=== PATIENT | female | born 1935 | race Caucasian/White ===

== ENCOUNTER 2017-04-14 08:09 | Emergency (ER) | payer MEDICARE, BC ==
[~2017-04-14] VITALS: Ht 172.7 cm; Wt 85.0 kg
[~2017-04-14 08:09] MED LIST: ACCU40TA10 PO; ATEN1TAB75 PO; ATOR20TA42 PO; CENTTAB9 PO; CLOP75 PO; DIAZ10 PO; FLUT0.05; FOSA70TA PO; FURO1TAB93 PO; OMEP20TA39 PO; POTA-243 PO; TYLE500T PO
[2017-04-14 08:13] VITALS: BP 157/86; PULSE 80; RESP 18; TEMP 98.5; O2SAT 97
[2017-04-14] MEDS ORDERED: SODIUM CHLORIDE 0.9% FLUSH 10 ML FLUSH IVF PRN (08:15)
[2017-04-14 08:32] VITALS: BP 151/84; PULSE 74; RESP 18; O2SAT 98
[2017-04-14] MEDS ORDERED: DIAZ10TA PO ×2 (08:38→08:47)
[2017-04-14] MEDS ORDERED: METO50TA PO ×2 (08:38→08:47)
[2017-04-14] MEDS ORDERED: CALC600T4 PO ×2 (08:38→08:47)
[2017-04-14] MEDS ORDERED: TYLE325T PO ×2 (08:38→08:47)
[2017-04-14] MEDS ORDERED: CLOP75TA PO ×2 (08:38→08:47)
[2017-04-14] MEDS ORDERED: K-TA10TA PO ×2 (08:45→08:47)
[2017-04-14] MEDS ORDERED: OMEP20TA93 PO ×2 (08:45→08:47)
[2017-04-14] MEDS ORDERED: FOSA70TA PO ×2 (08:45→08:47)
[2017-04-14 08:49] LABS: BASOPHIL % 0.6 % (0.0-2.0); EOSINOPHIL # 0.2 TH/MM3 (0-0.4); EOSINOPHIL % 3.8 % (0.0-4.0); HEMATOCRIT 37.7 % (35.0-46.0); HEMOGLOBIN 12.6 GM/DL (11.6-15.3); LYMPH % 34.2 % (9.0-44.0); LYMPHOCYTE # 1.9 TH/MM3 (1.0-4.8); MEAN CELL VOLUME 87.4 FL (80.0-100.0); MEAN CORPUSCULAR HEMOGLOBIN 29.2 PG (27.0-34.0); MEAN CORPUSCULAR HGB CONC 33.4 % (32.0-36.0); MONO % 6.5 % (0.0-8.0); MONOCYTE # 0.4 TH/MM3 (0-0.9); NEUT % 54.9 % (16.0-70.0); PLATELET COUNT 201 TH/MM3 (150-450); RED BLOOD COUNT 4.32 MIL/MM3 (4.00-5.30); RED CELL DISTRIBUTION WIDTH 12.9 % (11.6-17.2); WHITE BLOOD COUNT 5.5 TH/MM3 (4.0-11.0)
[2017-04-14 09:00] LABS: CALCIUM 9.8 MG/DL (8.5-10.1)
[2017-04-14 09:01] LABS: BICARBONATE 27.6 MEQ/L (21.0-32.0)
[2017-04-14 09:04] LABS: CREATININE 1.1 MG/DL (0.50-1.00)
[2017-04-14 09:08] LABS: PROTHROMBIN TIME - PATIENT 10.2 SEC (9.8-11.6)
--- NOTE | 2017-04-14 09:11 | PD ---
HPI Chief Complaint: Fall Time Seen by Provider: 08:13 Travel History International Travel<30 days: No Contact w/Intl Traveler<30days: No Traveled to known affect area: No History of Present Illness HPI 81-year-old female arrives to the ER by EMS transport. She was crossing the street and fell from a median into the sidewalk. Patient had a mechanical fall. She takes Plavix. Patient struck the left forehead causing a contusion/ ecchymosis. She reports persistent pain of moderate severity in the region of ecchymosis. No loss consciousness nausea vomiting visual change or neurologic change reported. She took Tylenol earlier in the morning as per normal. No other acute complaint. PFSH Past Medical History Hx Anticoagulant Therapy: Yes (PLAVIX) Arthritis: Yes Blood Disorders: No Cancer: Yes (jerry mastectomy) Cardiovascular Problems: Yes (av block) High Cholesterol: Yes Cerebrovascular Accident: Yes (TIA 2000) Diminished Hearing: No Endocrine: No Gastrointestinal Disorders: Yes GERD: Yes Genitourinary: No Headaches: Yes Hiatal Hernia: Yes Hypertension: Yes Immune Disorder: No Musculoskeletal: Yes Neurologic: Yes Reproductive: No Respiratory: No Tetanus Vaccination: Unknown Influenza Vaccination: Yes ?: Not Past Surgical History Abdominal Surgery: Yes (GALLBLADDER) AICD: No Cardiac Surgery: No Ear Surgery: No Endocrine Surgery: Yes (TONSILLECTOMY) Eye Surgery: Yes (CATARACT SURGERY) Genitourinary Surgery: No Gynecologic Surgery: Yes (HYSTERECTOMY) Joint Replacement: Yes (rtk) Oral Surgery: No Pacemaker: No Thoracic Surgery: No Other Surgery: Yes Social History Alcohol Use: No Tobacco Use: No Substance Use: No Allergies-Medications (Allergen,Severity, Reaction): Coded Allergies: sulfamethoxazole (Unverified Allergy, Severe, Hives, 04/14/17) trimethoprim (Unverified Allergy, Severe, Hives, 04/14/17) *MDRO Multi-Drug Resistant Organism (Verified Adverse Reaction, Unknown, ) 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 Reported Meds & Prescriptions Reported Meds & Active Scripts Active Reported Lasix (Furosemide) 40 Mg Tab 40 Mg PO DAILY Accupril (Quinapril HCl) 40 Mg Tab 40 Mg PO DAILY Calcium Carbonate 1,500 Mg Tab 1,500 Mg PO DAILY 1,500 mg calcium carbonate (600 mg elemental calcium) Tylenol (Acetaminophen) 325 Mg Tab 650 Mg PO BID PRN Fosamax (Alendronate Sodium) 70 Mg Tab 70 Mg PO Q7D Metoprolol Tartrate 50 Mg Tab 50 Mg PO BID Diazepam 10 Mg Tab 10 Mg PO BID PRN Omeprazole 20 Mg Tab 20 Mg PO BID K-Tab (Potassium Chloride) 10 Meq Tab 10 Meq PO DAILY Clopidogrel (Clopidogrel Bisulfate) 75 Mg Tab 75 Mg PO DAILY Review of Systems Except as stated in HPI: all other systems reviewed are Neg General / Constitutional: No: Fever Physical Exam Narrative GENERAL: 81-year-old female pleasant resting comfortably Vital Signs Date Time Temp Pulse Resp B/P (MAP) Pulse Ox O2 Delivery O2 Flow Rate FiO2 04/14/17 08:32 74 18 151/84 (106) 98 Room Air 04/14/17 08:13 98.5 80 18 157/86 (109) 97 SKIN: Warm and dry. HEAD: Atraumatic. Normocephalic. There is a contusion overlying the left forehead about 7 cm x 7 cm with ecchymosis. No laceration. EYES: Pupils equal and round. No scleral icterus. No injection or drainage. ENT: No nasal bleeding or discharge. Mucous membranes pink and moist. NECK: Trachea midline. No JVD. CARDIOVASCULAR: Regular rate and rhythm. RESPIRATORY: No accessory muscle use. Clear to auscultation. Breath sounds equal bilaterally. GASTROINTESTINAL: Abdomen soft, non-tender, nondistended. Hepatic and splenic margins not palpable. MUSCULOSKELETAL: Extremities without clubbing, cyanosis, or edema. No obvious deformities. NEUROLOGICAL: Awake and alert. No obvious cranial nerve deficits. Motor grossly within normal limits. Five out of 5 muscle strength in the arms and legs. Normal speech. PSYCHIATRIC: Appropriate mood and affect; insight and judgment normal. Data Data Last Documented VS Vital Signs Date Time Temp Pulse Resp B/P (MAP) Pulse Ox O2 Delivery O2 Flow Rate FiO2 04/14/17 08:32 74 18 151/84 (106) 98 Room Air 04/14/17 08:[address] Cerv Spine W/O Contrast (04/14/17 08:13) Complete Blood Count With Diff (04/14/17 08:13) Basic Metabolic Panel (Bmp) (04/14/17 08:13) Prothrombin Time / Inr (Pt) (04/14/17 08:13) Act Partial Throm Time (Ptt) (04/14/17 08:13) Ct Brain W/O Iv Contrast(Rout) (04/14/17 08:13) Ecg Monitoring (04/14/17 08:13) Iv Access Insert/Monitor (04/14/17 08:13) Oximetry (04/14/17 08:13) Sodium Chloride 0.9% Flush (Ns Flush) (04/14/17 08:15) Labs Laboratory Tests Test 04/14/17 08:25 White Blood Count 5.5 TH/MM3 Red Blood Count 4.32 MIL/MM3 Hemoglobin 12.6 GM/DL Hematocrit 37.7 % Mean Corpuscular Volume 87.4 FL Mean Corpuscular Hemoglobin 29.2 PG Mean Corpuscular Hemoglobin Concent 33.4 % Red Cell Distribution Width 12.9 % Platelet Count 201 TH/MM3 Mean Platelet Volume 8.0 FL Neutrophils (%) (Auto) 54.9 % Lymphocytes (%) (Auto) 34.2 % Monocytes (%) (Auto) 6.5 % Eosinophils (%) (Auto) 3.8 % Basophils (%) (Auto) 0.6 % Neutrophils # (Auto) 3.0 TH/MM3 Lymphocytes # (Auto) 1.9 TH/MM3 Monocytes # (Auto) 0.4 TH/MM3 Eosinophils # (Auto) 0.2 TH/MM3 Basophils # (Auto) 0.0 TH/MM3 CBC Comment DIFF FINAL Differential Comment Prothrombin Time 10.2 SEC Prothromb Time International Ratio 1.0 RATIO Activated Partial Thromboplast Time 20.8 SEC Blood Urea Nitrogen 16 MG/DL Creatinine 1.10 MG/DL Random Glucose 119 MG/DL Calcium Level 9.8 MG/DL Sodium Level 143 MEQ/L Potassium Level 3.3 MEQ/L Chloride Level 106 MEQ/L Carbon Dioxide Level 27.6 MEQ/L Anion Gap 9 MEQ/L Estimat Glomerular Filtration Rate 48 ML/MIN [facility] Medical Decision Making Medical Screen Exam Complete: Yes Emergency Medical Condition: Yes Medical Record Reviewed: Yes Differential Diagnosis ICH, hematoma, contusion, skull fracture Narrative Course CBC & BMP Diagram 04/14/17 08:25 Calcium Level 9.8 Last [address] 04/14/1713 Signed Impressions: Service Date/Time: Friday, April 14, 2017 09:19 - CONCLUSION: 1. Large left frontal cephalhematoma. 2. High left frontal calcified parafalcine meningioma without significant mass effect. 3. No evidence of acute infarct, intracranial hemorrhage, mass or edema. 4. Intact skull King Barber MD CERVICAL SPINE CT CONCLUSION: 1. Degenerative disc disease with spondylosis and facet arthropathy 2. Left-sided foraminal stenosis from marginal spurring 3. No acute fracture or trabecular listhesis. 4. The lungs unremarkable exam. Patient ambulated to the bathroom without difficulty. Workup grossly unremarkable the patient stable for discharge home. She Plavix is of some concern however observation at this time is considered unnecessary. Diagnosis Primary Impression: Fall Qualified Codes: W19.XXXA - Unspecified fall, initial encounter Additional Impressions: Contusion Qualified Codes: S00.03XA - Contusion of scalp, initial encounter Ecchymosis Referrals: Primary Care Physician 2 days Med/Other Pt SpecificInfo: No Change to Meds Disposition: 01 DISCHARGE HOME Condition: Stable Hakna Murillo MD Apr 14, 2017 09:11
--- NOTE | 2017-04-14 09:46 | RADRPT ---
EXAM DATE/TIME: 04/14/2017 09:19 [facility] COMPARISON: No previous studies available for comparison. INDICATIONS : Tripped and fell,hitting left forehead. RADIATION DOSE: 62.71 CTDIvol (mGy) MEDICAL HISTORY : Cardiovascular disease. Carcinoma, breast. TIA, Benign brain mass. SURGICAL HISTORY : Hysterectomy. Mastectomy, bilateral.Cholecystectomy. ENCOUNTER: Initial ACUITY: 1 day PAIN SCALE: 9/10 LOCATION: Left cranial TECHNIQUE: Multiple contiguous axial images were obtained of the head. Using automated exposure control and adj ustment of the mA and/or kV according to patient size, radiation dose was kept as low as reasonably a chievable to obtain optimal diagnostic quality images. DICOM format image data is available electro nically for review and comparison. FINDINGS: CEREBRUM: A calcified parafalcine measuring 1.5 x 1.9 cm in size is identified in the high left frontal convexi ty. There is no significant mass effect on the adjacent brain. The ventricles are normal for age. No evidence of midline shift, mass lesion, hemorrhage or acute infarction. No extra-axial fluid collec tions are seen. POSTERIOR FOSSA: The cerebellum and brainstem are intact. The 4th ventricle is midline. The cerebellopontine angle i s unremarkable. EXTRACRANIAL: Hyperdense soft tissue swelling is identified in the left supraorbital region extending into the fore head characteristic of a large cephalohematoma. The visualized portion of the orbits is intact. SKULL: The calvaria is intact. No evidence of skull fracture. CONCLUSION: 1. Large left frontal cephalhematoma. 2. High left frontal calcified parafalcine meningioma without significant mass effect. 3. No evidence of acute infarct, intracranial hemorrhage, mass or edema. 4. Intact skull King Barber MD on April 14, 2017 at 9:40 Board Certified Radiologist. This report was verified electronically.
[2017-04-14] MEDS ORDERED: ACCU40TA PO (09:48)
[2017-04-14] MEDS ORDERED: FURO1TAB60 PO (09:48)
--- NOTE | 2017-04-14 10:01 | RADRPT ---
EXAM DATE/TIME: 04/14/2017 09:19 [facility] COMPARISON: No previous studies available for comparison. INDICATIONS : Tripped and fell,hitting left forehead. RADIATION DOSE: 26.04 CTDIvol (mGy) MEDICAL HISTORY : Cardiovascular disease. Carcinoma, breast. TIA, benign brain mass. SURGICAL HISTORY : Hysterectomy. Cholecystectomy.Tonsillectomy.Miguel mastectomy. ENCOUNTER: Initial ACUITY: 1 day PAIN SCALE: 9/10 LOCATION: neck TECHNIQUE: Volumetric scanning of the cervical spine was performed. Multiplanar reconstructions i n the sagittal, coronal and oblique axial planes were performed. Using automated exposure control a nd adjustment of the mA and/or kV according to patient size, radiation dose was kept as low as reason ably achievable to obtain optimal diagnostic quality images. DICOM format image data is available e lectronically for review and comparison. FINDINGS: Alignment: Craniocervical and cervical vertebral body alignment are well-maintained without evidence of traumati c listhesis. Osseous structures and facet joints: Vertebral bodies and posterior elements are intact. There is no evidence of acute fracture or facet s ubluxation. Moderate facet arthropathy is noted. There is significant joint space narrowing, sclerosis and margin al spurring involving the facet joints. Changes are asymmetric in severity and worse on the left. Sig nificant arthropathy is seen on the left at C2-3, C3-4 and C4-5. On the right the changes involve the C2-3 and C3-4 facet joint.. Moderate left foramina stenosis is identified at C3-4, C4-5 and C5-6. Intervertebral disc spaces: Moderate degenerative disease is noted at C4-5, C5-6 and C6-7. There is significant disc space narrow ing with marginal spondylosis. Mild anterior epidural effacement is noted from posterior spurring. There are no findings suspicious for acute disc herniation. Neurologic structures: No evidence of spinal stenosis. CONCLUSION: 1. Degenerative disc disease with spondylosis and facet arthropathy 2. Left-sided foraminal stenosis from marginal spurring 3. No acute fracture or trabecular listhesis. 4. The lungs unremarkable exam. King Barber MD on April 14, 2017 at 9:52 Board Certified Radiologist. This report was verified electronically.
[2017-04-14 10:32] VITALS: BP 140/88
== END 2017-04-14 10:54 | disposition home or self-care (01) ==
LOC: PHED 08:09
DX: S00.03XA Contusion of scalp, initial encounter (principal); I10 Essential (primary) hypertension; E78.00 Pure hypercholesterolemia, unspecified; K21.9 Gastro-esophageal reflux disease without esophagitis; W19.XXXA Unspecified fall, initial encounter; Y92.480 Sidewalk as the place of occurrence of the external cause; Z79.01 Long term (current) use of anticoagulants; Z87.39 Personal history of other diseases of the musculoskeletal system and connective tissue; Z85.3 Personal history of malignant neoplasm of breast; Z86.79 Personal history of other diseases of the circulatory system; Z86.69 Personal history of other diseases of the nervous system and sense organs
CPT/HCPCS: 70450; 72125; 80048; 85025; 85610; 85730; 99284

== ENCOUNTER 2018-01-06 06:02 | Inpatient (IN) ==
[2018-01-06] MEDS ORDERED: Morphine Sulfate Inj 2 MG/ML Vial IV.PUSH ONE ×2 (06:12→07:34)
--- NOTE | 2018-01-06 06:16 | ED ---
HPI General Chief complaint: Medical Clearance Stated complaint: Medical Time Seen by Provider: 01/06/18 06:09 Source: patient, EMS, RN notes reviewed and old records reviewed Mode of arrival: EMS History of Present Illness HPI narrative: 82yF brought in by EMS for multiple complaints. The patient was seen here yesterday for palpitations and dizziness, found to have hypokalemia ( 2.8) and first-degree AV block with frequent PVCs. She received potassium supplementation in the ED and discharged home, but she reports that for the past several hours she's had severe diffuse abdominal pain, nausea, vomiting, generalized weakness, and arthralgias (pain in bilateral knees, neck, shoulders , etc.). She also reports chills and dysuria. Related Data Home Medications Medication Instructions Recorded Confirmed acetaminophen [Mapap 650 mg PO Q6H PRN 01/05/18 01/06/18 (acetaminophen)] alendronate 70 mg PO QWEEK 01/05/18 01/06/18 atenolol 100 mg PO DAILY 01/05/18 01/06/18 clopidogrel 75 mg PO DAILY 01/05/18 01/06/18 diazepam 10 mg PO BID 01/05/18 01/06/18 [id number]-[id number] 1 tab PO DAILY 01/05/18 01/06/18 [Cerovite Senior] omeprazole 20 mg PO DAILY 01/05/18 01/06/18 polyvinyl alcohol [Artificial 1 drp OPHTHALMIC (EYE) TID-QID PRN 01/05/18 Tears (polyvin alc)] potassium chloride 10 meq PO DAILY 01/05/18 01/06/18 quinapril 40 mg PO DAILY 01/05/18 01/06/18 furosemide 40 mg PO DAILY 01/06/18 01/06/18 Allergies Allergy/AdvReac Type Severity Reaction Status Date / Time sulfamethoxazole Allergy Severe Hives Verified 01/06/18 06:11 trimethoprim Allergy Severe Hives Verified 01/06/18 06:11 *MDRO Multi-Drug Resistant AdvReac Unknown Anaphylaxis Uncoded 01/06/18 06:11 Organism Review of Systems ROS: all other systems reviewed are negative Constitutional Denies fever(s) Cardiovascular Denies chest pain Respiratory Denies cough Gastrointestinal Reports abdominal pain, Reports nausea and Reports vomiting Genitourinary Reports dysuria Musculoskeletal Denies back pain Neurologic Comments: (+) dizziness [facility] Medical History Medical History Breast cancer (Acute) Hypertension (Acute) Osteoarthritis (Acute) Osteoporosis (Acute) Surgical History Surgical History H/O bilateral mastectomy (Acute) Social History Social History Substance History: No History of Abuse Second Hand Smoke Exposure: No Smoking Status: Never smoker How Often Do You Have a Drink Containing Alcohol: Never Recent Travel in [facility] within the Last 8 Weeks: No Recent Out of Country Travel within the Last 8 Weeks: No Immunization History Tetanus Immunization: Unsure Tetanus Immunization Year if Known: 2017 Exam Const Other: Elderly female, appears uncomfortable HENMT Face and sinus: normal facial exam Eyes General: appearance normal, both eyes and all related structures Chest Other: Bilateral mastectomy scars Resp Auscultation: clear to auscultation bilaterally Cardio Rate: regular rate Rhythm: abnormal rhythm GI Palpation: soft and nontender Neuro Other: Appears confused, poor historian, oriented x 3, moving all extremities Course Initial Documented Vital Signs Temperature 98.1 F 01/06/18 06:05 Pulse Rate 114 H 01/06/18 06:05 Respiratory Rate 16 01/06/18 06:05 Blood Pressure 142/101 H 01/06/18 06:05 Pulse Oximetry 99 01/06/18 06:05 Last Documented Vital Signs Temperature 98.1 F 01/06/18 06:05 Pulse Rate 97 H 01/06/18 09:26 Respiratory Rate 17 01/06/18 09:26 Blood Pressure 187/112 H 01/06/18 09:26 Pulse Oximetry 96 01/06/18 09:26 Sign Out Sign Out Data: Patient Sign Out occurred on 01/06/18 at 07:15. Patient's care was discussed, and care was transferred from Laurie Anne DO to Alejandra Wolf MD. Sign Out Comment: 82yF with nausea, vomiting, abdominal pain; seen yesterday for hypokalemia and multiple PVCs; pending labs and imaging Last updated by Laurie Anne DO at 01/06/18 06:54 Post-Handoff Eval: Signed over to me to follow workup and reevaluate. Patient here with vomiting and abdominal pain. Initial blood work showed new leukocytosis from yesterday and with her tachycardia lactate was added on. She was given gentle IV fluids. She was given broad-spectrum antibiotics and blood culture sent while awaiting imaging. CT shows nonspecific ileus versus enteritis with associated fluid. Patient will be admitted to the hospital for sepsis. Lactate is significantly elevated at 5. Heart rate improved with fluids. Patient has no fever, tachypnea and blood pressure in fact is elevated. She was updated and agrees to plan of care with aggressive antibiotics and gentle IV fluids with close monitoring. Medical Decision Making MDM Narrative Medical decision making narrative: Assessment: 82yF presenting with nausea, vomiting, abdominal pain, myalgias/ arthralgias, ? confusion Plan: EKG and monitor Pain control, antiemetics, IV fluids UA Labs CTH, CT abd/ pelvis Medical Screen Exam Complete: Yes Emergency Medical Condition: Yes Differential Diagnosis Differential Diagnosis: Differential diagnosis includes, but is not limited to: arrhythmia, electrolyte abnormality, SBO, gastritis, pancreatitis, colitis, UTI / pyelonephritis, ICH Lab Data Lab results reviewed: Yes I reviewed the patient's lab results. Result diagrams: 01/06/18 07:10 01/06/18 06:15 Lab Results 01/06/18 01/06/18 01/06/18 Range/Units 06:15 06:30 07:10 WBC 15.1 H D (4.0-11.0) th/mm3 RBC 4.59 (4.00-5.30) mil/mm3 Hgb 14.3 (11.6-15.3) gm/dL Hct 42.0 (35.0-46.0) % MCV 91.4 (80.0-100.0) fL MCH 31.0 (27.0-34.0) pg MCHC 33.9 (32.0-36.0) % RDW 13.3 (11.6-17.2) % Plt Count 215 (150-450) th/mm3 MPV 8.5 (7.0-11.0) fL Prelim Diff (Auto) Slide review pending Neut % (Auto) 83.7 H (16.0-70.0) % Lymph % (Auto) 12.8 (9.0-44.0) % Larue % (Auto) 3.1 (0.0-8.0) % Eos % (Auto) 0.0 (0.0-4.0) % Baso % (Auto) 0.4 (0.0-2.0) % Neut # (Auto) 12.6 H (1.8-7.7) th/mm3 Lymph # (Auto) 1.9 (1.0-4.8) th/mm3 Larue # (Auto) 0.5 (0.0-0.9) th/mm3 Eos # (Auto) 0.0 (0.0-0.4) th/mm3 Baso # (Auto) 0.1 (0.0-0.2) th/mm3 WBC Differential . Diff Scan Auto diff confirmed Differential Comment . PT 10.5 (9.8-11.6) sec INR 1.0 Ratio Sodium 142 (136-145) meq/L Potassium 3.5 (3.5-5.1) meq/L Chloride 112 H (98-107) meq/L Carbon Dioxide 18.6 L (21.0-32.0) meq/L Anion Gap 11 (5-15) meq/L BUN 15 (7-18) mg/dL Creatinine 1.09 H (0.50-1.00) mg/dL Estimated GFR 48 L (>89) mL/min Random Glucose 225 H D (74-106) mg/dL Lactic Acid (0.4-2.0) mmol/L Calcium 10.3 H D (8.5-10.1) mg/dL Magnesium 1.9 (1.5-2.5) mg/dL Total Bilirubin 0.5 (0.2-1.0) mg/dL AST 28 (15-37) U/L ALT 19 (10-53) U/L Alkaline Phosphatase 44 L (45-117) U/L Troponin I Less than 0.02 L (0.02-0.05) ng/mL Total Protein 7.5 (6.4-8.2) g/dL Albumin 4.1 (3.4-5.0) g/dL Lipase 113 (73-393) U/L Urine Color (Yellw/Straw) Urine Clarity (Clear) Urine pH (5.0-8.5) Ur Specific [place] (1.002-1.035) Urine Protein (Neg-Trace) mg/dL Urine Glucose (UA) (Negative) mg/dL Urine Ketones (Negative) mg/dL Urine Occult Blood (Negative) Urine Nitrate (Negative) Urine Bilirubin (Negative) Urine Urobilinogen (Less than 2) mg/dL Ur Leukocyte Esterase (Negative) Urine RBC (0-3) /hpf Urine WBC (0-5) /hpf Micro UA Comment Ur Microscopic Review Urine Culture Comments 01/06/18 01/06/18 Range/Units 08:03 08:18 WBC (4.0-11.0) th/mm3 RBC (4.00-5.30) mil/mm3 Hgb (11.6-15.3) gm/dL Hct (35.0-46.0) % MCV (80.0-100.0) fL MCH (27.0-34.0) pg MCHC (32.0-36.0) % RDW (11.6-17.2) % Plt Count (150-450) th/mm3 MPV (7.0-11.0) fL Prelim Diff (Auto) Neut % (Auto) (16.0-70.0) % Lymph % (Auto) (9.0-44.0) % Larue % (Auto) (0.0-8.0) % Eos % (Auto) (0.0-4.0) % Baso % (Auto) (0.0-2.0) % Neut # (Auto) (1.8-7.7) th/mm3 Lymph # (Auto) (1.0-4.8) th/mm3 [place] # (Auto) (0.0-0.9) th/mm3 Eos # (Auto) (0.0-0.4) th/mm3 Baso # (Auto) (0.0-0.2) th/mm3 WBC Differential Diff Scan Differential Comment PT (9.8-11.6) sec INR Ratio Sodium (136-145) meq/L Potassium (3.5-5.1) meq/L Chloride (98-107) meq/L Carbon Dioxide (21.0-32.0) meq/L Anion Gap (5-15) meq/L BUN (7-18) mg/dL Creatinine (0.50-1.00) mg/dL Estimated GFR (>89) mL/min Random Glucose (74-106) mg/dL Lactic Acid 5.0 H* (0.4-2.0) mmol/L Calcium (8.5-10.1) mg/dL Magnesium (1.5-2.5) mg/dL Total Bilirubin (0.2-1.0) mg/dL AST (15-37) U/L ALT (10-53) U/L Alkaline Phosphatase (45-117) U/L Troponin I (0.02-0.05) ng/mL Total Protein (6.4-8.2) g/dL Albumin (3.4-5.0) g/dL Lipase (73-393) U/L Urine Color Straw (Yellw/Straw) Urine Clarity Clear (Clear) Urine pH 6.0 (5.0-8.5) Ur Specific [place] 1.032 (1.002-1.035) Urine Protein Negative (Neg-Trace) mg/dL Urine Glucose (UA) 150 H (Negative) mg/dL Urine Ketones 20 (Negative) mg/dL Urine Occult Blood Negative (Negative) Urine Nitrate Negative (Negative) Urine Bilirubin Negative (Negative) Urine Urobilinogen Less than 2 (Less than 2) mg/dL Ur Leukocyte Esterase Negative (Negative) Urine RBC 1 (0-3) /hpf Urine WBC 2 (0-5) /hpf Micro UA Comment Cath-culture not ind Ur Microscopic Review Not Reportable Urine Culture Comments Cath-cult not ind Imaging Data Attestation: I personally reviewed and interpreted this imaging study as follows : Radiologist's impression: Chest X-Ray 01/06/18 06:10 CONCLUSION: No acute cardiopulmonary abnormality is identified. Abdomen/Pelvis CT 01/06/18 06:11 CONCLUSION: 1. There are a few mildly dilated loops of small bowel in the lower abdomen. This can be a focal ileus versus some enteritis. No definite mechanical obstruction is seen. 2. There is a small amount of ascites in the upper abdomen with some free fluid around the liver and spleen. 3. There is some stable mild dilatation of the intrahepatic biliary ducts most likely reservoir effect secondary to cholecystectomy. This is not significantly changed compared to the prior exam. 4. A few nonobstructing subcentimeter stones are seen in the left kidney. 5. Bilateral simple appearing renal cysts. Head CT 01/06/18 06:16 CONCLUSION: 1. Stable CT scan of the brain compared to the prior examination. 2. Stable bilateral cortical atrophy and chronic white matter changes. 3. Stable 1.6 cm calcified left parafalcine meningioma high along the left cerebral vertex.. . ECG Data Attestation: I personally reviewed and interpreted this ECG as follows: Interpretation: Rate: 115 BPM Rhythm: Sinus with frequent PVCs [place]: Normal Intervals: 1st degree AV block, QTc 438 ms Q waves: V2 T waves: Inverted in aVF ST segments: No elevations or depressions Impression: First degree AV block, frequent monomorphic PVCs, no changes as compared to EKG from 01/05/2018. Discharge Plan Discharge Disposition Patient Disposition: ED Admit(ED Internal Use Only) Discharge Details Diagnosis: Sepsis, Acidosis, lactic, Abdominal pain Physicians Team ED Provider: Alejandra Wolf Primary Care Provider: Jozef Bolanos Attending Provider: Valente Rogers Status ED Status: Admitted Patient
--- NOTE | 2018-01-06 06:53 | XR ---
EXAM DATE: 01/06/2018 6:44 AM EST AGE/SEX: 82 years / Female INDICATIONS: Chest pain today. CLINICAL DATA: This is the patient's initial encounter. Patient reports that signs and symptoms have been present for 1 day and indicates a pain score of 6/10. MEDICAL/SURGICAL HISTORY: Carcinoma, breast. Cardiovascular disease. TIA, benign brain mass. H ysterectomy. Mastectomy, bilateral. Cholecystectomy. Tonsillectomy. COMPARISON: No prior exams available for comparison. FINDINGS: Portable AP view of the chest demonstrates a normal-sized cardiac silhouette. No effusion, consolidat ion, or pneumothorax is identified. The bones and soft tissues demonstrate no acute finding. EKG line s overlie the patient. CONCLUSION: No acute cardiopulmonary abnormality is identified. Electronically signed by: Rory Street MD 01/06/2018 6:52 AM EST
[2018-01-06 06:58] LABS: Prothrombin Time 10.5 sec (9.8-11.6)
[2018-01-06 07:05] LABS: Alanine Aminotransferase 19 U/L (10-53); Albumin 4.1 g/dL (3.4-5.0); Alkaline Phosphatase 44 U/L (45-117); Anion Gap 11 meq/L (5-15); Aspartate Aminotransferase 28 U/L (15-37); Blood Urea Nitrogen 15 mg/dL (7-18); Calcium 10.3 mg/dL (8.5-10.1); Carbon Dioxide 18.6 meq/L (21.0-32.0); Chloride 112 meq/L (98-107); Glomerular Filtration Rate 48 mL/min (>89); Glucose,Random 225 mg/dL (74-106); Lipase 113 U/L (73-393); Magnesium 1.9 mg/dL (1.5-2.5); Sodium 142 meq/L (136-145); Total Protein 7.5 g/dL (6.4-8.2)
[2018-01-06 07:11] LABS: Potassium 3.5 meq/L (3.5-5.1)
[2018-01-06 07:24] LABS: Baso # (Auto) 0.1 th/mm3 (0.0-0.2); Baso % (Auto) 0.4 % (0.0-2.0); Hemoglobin 14.3 gm/dL (11.6-15.3); Lymph # (Auto) 1.9 th/mm3 (1.0-4.8); Lymph % (Auto) 12.8 % (9.0-44.0); Mean Corpuscular HGB Conc 33.9 % (32.0-36.0); Mean Corpuscular Volume 91.4 fL (80.0-100.0); Mean Platelet Volume 8.5 fL (7.0-11.0); Mono # (Auto) 0.5 th/mm3 (0.0-0.9); Mono % (Auto) 3.1 % (0.0-8.0); Neut # (Auto) 12.6 th/mm3 (1.8-7.7); Neut % (Auto) 83.7 % (16.0-70.0); Platelet Count 215 th/mm3 (150-450); Red Blood Count 4.59 mil/mm3 (4.00-5.30); Red Cell Distribution Width 13.3 % (11.6-17.2); White Blood Count 15.1 th/mm3 (4.0-11.0)
[2018-01-06] MEDS ORDERED: Vancomycin Inj 1,000 MG in Sodium Chlor 0.9% Inj 250 ML IV.SIG STA (07:54)
[2018-01-06] MEDS ORDERED: Piperacil/Tazo 4.5 GM Premix 4.5 GM/100 ML BAG IV.SIG STA (07:54)
--- NOTE | 2018-01-06 07:56 | CT ---
EXAM DATE: 01/06/2018 7:48 AM EST AGE/SEX: 82 years / Female INDICATIONS: Dizziness. CLINICAL DATA: This is the patient's initial encounter. Patient reports that signs and symptoms have been present for 1 day and indicates a pain score of 0/10. MEDICAL/SURGICAL HISTORY: Carcinoma, breast. Hypertension. Osteoporosis. Mastectomy, bilateral. RADIATION DOSE: 66.34 CTDI (mGy) COMPARISON: [facility], CT BRAIN W/O CONTRAST, 04/14/2017. . TECHNIQUE: CT of the head without contrast. Using automated exposure control and adjustment of the mA and/or kV according to patient size, radiation dose was kept as low as reasonably achievable to ob tain optimal diagnostic quality images. DICOM format image data is available electronically for revi ew and comparison. FINDINGS: Cerebrum: The ventricles are normal for age. There is bilateral cortical atrophy and chronic white m atter changes. No evidence of midline shift, hemorrhage or acute infarction. No extraaxial fluid col lections are seen. There is a stable 1.6 cm calcified parafalcine meningioma along the high left cere bral vertex. Posterior Fossa: The cerebellum and brainstem are intact. The 4th ventricle is midline. The cerebe llopontine angle is unremarkable. Extracranial: The visualized portion of the orbits is intact. Skull: The calvaria is intact. No evidence of skull fracture. Compared to the prior exam, no new or significant changes are demonstrated. CONCLUSION: 1. Stable CT scan of the brain compared to the prior examination. 2. Stable bilateral cortical atrophy and chronic white matter changes. 3. Stable 1.6 cm calcified left parafalcine meningioma high along the left cerebral vertex.. . Electronically signed by: Elder Farah MD 01/06/2018 7:54 AM EST
[2018-01-06] MEDS ORDERED: Sodium Chlor 0.9% Inj 500 ML IV.SIG SCH ×2 (08:00→09:00)
--- NOTE | 2018-01-06 08:11 | CT ---
EXAM DATE: 01/06/2018 7:58 AM EST AGE/SEX: 82 years / Female INDICATIONS: Diffuse Abdominal pain, nausea, vomiting and dysuria CLINICAL DATA: This is the patient's initial encounter. Patient reports that signs and symptoms have been present for 1 day and indicates a pain score of 10/10. MEDICAL/SURGICAL HISTORY: Hypertension. Carcinoma, breast. Osteoarthritis. Mastectomy, bilate ral. ORAL CONTRAST: No oral contrast ingested. RADIATION DOSE: 7.01 CTDI (mGy) COMPARISON: [facility], CT ABDOMEN W AND W/O CONTRAST, 03/30/2008. . TECHNIQUE: Multiple contiguous axial images were obtained through the abdomen and pelvis following b olus infusion of 96 ml Omnipaque 350 (iohexol) nonionic water-soluble contrast as a single exam dos e. No oral contrast ingested. Using automated exposure control and adjustment of the mA and/or kV ac cording to patient size, radiation dose was kept as low as reasonably achievable to obtain optimal di agnostic quality images. DICOM format image data is available electronically for review and comparis on. FINDINGS: Lower Lungs: The visualized lower lungs are clear. Tiny granuloma in right lung base. Liver: The liver has a homogeneous density without space-occupying lesion. There is mild dilation of the biliary tree. Patient is status post cholecystectomy. This is most likely secondary to reservoir effect. This is not significantly changed compared to the prior exam. There is a trace of free fluid adjacent to the liver. Spleen: Homogeneous density without enlargement. Small amount of free fluid adjacent to the spleen. Pancreas: Unremarkable without mass or calcification. Kidneys: Normal in size and shape. No evidence of mass or hydronephrosis. There is a 4 mm nonobstruc ting stone in the midpole the left kidney. There is a 6 mm nonobstructing stone in the lower pole the left kidney. There are multiple bilateral renal cysts. The largest cyst on the left measures 6 cm. T he largest cyst on the right measures 4.3 cm. Adrenal Glands: Unremarkable. Aorta: The aorta and proximal iliac vessels are grossly unremarkable without aneurysmal dilation. Bowel/Mesentery: There are a few mildly dilated loops of small bowel in the lower abdomen with some mild inflammatory type changes.. The colon is nondilated and there is stool throughout the colon. No loculated fluid collections are seen. There is a small amount of free fluid in the upper abdomen arou nd the liver and spleen. Abdominal Wall: Intact. Retroperitoneum: No evidence of adenopathy in the retrocrural, para-aortic, or deep pelvic regions. Bladder: Contours are smooth. Reproductive Organs: No abnormal masses or calcifications seen. Inguinal: The inguinal region is unremarkable without evidence of adenopathy. Bony Structures: There are some old healed fractures involving the inferior pubic rami bilaterally. There is diastases of the pubic symphysis. There are degenerative changes of the lumbar spine and pel vis. There is curvature of the lumbar spine to the right. CONCLUSION: 1. There are a few mildly dilated loops of small bowel in the lower abdomen. This can be a focal ile us versus some enteritis. No definite mechanical obstruction is seen. 2. There is a small amount of ascites in the upper abdomen with some free fluid around the liver and spleen. 3. There is some stable mild dilatation of the intrahepatic biliary ducts most likely reservoir effe ct secondary to cholecystectomy. This is not significantly changed compared to the prior exam. 4. A few nonobstructing subcentimeter stones are seen in the left kidney. 5. Bilateral simple appearing renal cysts. Electronically signed by: Elder Farah MD 01/06/2018 8:10 AM EST
[2018-01-06 08:58] LABS: Bilirubin,Urine Negative (Negative); Clarity,Urine Clear (Clear); Color,Urine Straw (Yellw/Straw); Glucose,Urine (UA) 150 mg/dL (Negative); Leukocyte Esterase,Urine Negative (Negative); Nitrite,Urine Negative (Negative); Specific Gravity,Urine 1.032 (1.002-1.035)
[2018-01-06] MEDS ORDERED: Sod Chloride 0.9% Inj 1,000 ML IV.SIG SCH (09:15)
[2018-01-06] MEDS ORDERED: Bisacodyl 10 MG Supp RECTAL PRN (10:47)
[2018-01-06] MEDS ORDERED: Acetaminophen 325 MG Tablet PO PRN (10:47)
[2018-01-06] MEDS ORDERED: Morphine Inj 4 MG/ML Vial IV.PUSH PRN (11:24)
--- NOTE | 2018-01-06 11:27 | P.HP ---
History of Present Illness Service: Hospitalist Primary Care Physician: Jozef Bolanos Chief Complaint: Abdominal pain History of Present Illness: Mr. Long is an 82-year-old female with a history of anxiety, osteoporosis who presented to the emergency department due to abdominal pain, nausea vomiting and generalized weakness. At the time of this interview, patient is not able to provide consistent history. She reports abdominal pain which is her major complaint. She told me that she has not had any bowel movement for 7-10 days. However, she told ED nurses a different timeframe. Patient repeatedly complains of abdominal pain during this interview. Denies any chest pain, shortness of breath, fever or chills. Denies any changes in bladder habits. On arrival, WBC 15.1 K, BUN 15, creatinine is 1.09, lactic acid 5.0 and second lactic acid 5.6. CT scan shows mildly dilated loops of small bowel in the lower abdomen which could be ileus versus enteritis. No definite mechanical obstruction noted. Past medical history: Osteoporosis, anxiety, breast cancer Past surgical history: She reports having double mastectomy in the past. Social history: Patient denies using tobacco or alcohol. Family history: Mother had dementia. Inpatient Certification: I certify that the inpatient services were ordered in accordance with Medicare regulations governing the order. This includes certification that hospital inpatient services are reasonable and necessary and in the case of services not specified as inpatient-only under 42 CFR 419.22(n), that they are appropriately provided as inpatient services in accordance to with the 2-midnight benchmark under 43 CFR 412.3(e) Estimated Total Length of Stay (Days): 3 Plans for Post Hospital Care: Not yet determined Review of Systems All other systems reviewed negative except as stated in HPI PMFSH - History History Provided By: Patient - Medical History Medical History: Medical History (Last Reviewed 01/06/18 @ 18:53 by Valente Rogers DO) Breast cancer Hypertension Osteoarthritis Osteoporosis - Surgical History Surgical History: Surgical History (Last Reviewed 01/06/18 @ 18:53 by Valente Rogers DO) H/O bilateral mastectomy - Tobacco History Second Hand Smoke Exposure: No Tobacco Use In Past 30 Days: No Smoking Status: Never smoker - Alcohol History How Often Do You Have a Drink Containing Alcohol: Never - Substance Use History Substance History: No History of Abuse - Travel History Recent Travel in the [facility] Within the Last 8 Weeks: No Recent Travel Out of the Country Within the Last 8 Weeks: No - Immunization History Tetanus Immunization: Unsure Tetanus Immunization Year if Known: 2017 Medications and Allergies Active Medications: Active Medications Acetaminophen (Tylenol) 650 mg PO Q4H PRN PRN Reason: Headache, fever, pain 1-4 Al Hydroxide/Mg Hydroxide (Milk Of Magnesia Liq) 30 ml PO Q12H PRN PRN Reason: Mild Constipation Bisacodyl (Dulcolax Supp) 10 mg RECTAL DAILY PRN PRN Reason: SEVERE CONSITIPATION Piperacillin/Tazobactam/Dextrose (Zosyn 3.375 Gm Premix) 50 mls @ 100 mls/hr IV.SIG Q6H SAQIB Sodium Chloride (Ns Inj) 1,000 mls @ 100 mls/hr IV.CONT .Q10H SAQIB Lactulose (Lactulose Liq) 30 ml PO DAILY PRN PRN Reason: SEVERE CONSITIPATION Morphine Sulfate (Morphine Inj) 4 mg IV.PUSH Q4H PRN PRN Reason: Pain 5-10 Ondansetron HCl (Zofran Inj) 4 mg IV.PUSH Q6H PRN PRN Reason: NAUSEA OR VOMITING Sennosides (Senokot) 17.2 mg PO Q12H PRN PRN Reason: Moderate Constipation Sodium Chloride (Ns Flush) 2 ml IV.FLUSH UNSCH PRN PRN Reason: FLUSH AFTER USING IV ACCESS Last Admin: 01/06/18 06:42 Dose: 2 ml Sodium Chloride (Ns Flush) 2 ml IV.FLUSH BID SAQIB Sodium Chloride (Ns Flush) 2 ml IV.FLUSH PRN PRN PRN Reason: FLUSH AFTER USING IV ACCESS Allergies Allergy/AdvReac Type Severity Reaction Status Date / Time sulfamethoxazole Allergy Severe Hives Verified 01/06/18 06:11 trimethoprim Allergy Severe Hives Verified 01/06/18 06:11 *MDRO Multi-Drug Resistant AdvReac Unknown Anaphylaxis Uncoded 01/06/18 06:11 Organism Home Medications Medication Instructions Recorded Confirmed Type acetaminophen [Mapap 650 mg PO Q6H PRN 01/05/18 01/06/18 History (acetaminophen)] alendronate 70 mg PO QWEEK 01/05/18 01/06/18 History atenolol 100 mg PO DAILY 01/05/18 01/06/18 History clopidogrel 75 mg PO DAILY 01/05/18 01/06/18 History diazepam 10 mg PO BID 01/05/18 01/06/18 History aiglynfzejkb-jcqqhjdz-ymgnad 1 tab PO DAILY 01/05/18 01/06/18 History [Cerovite Senior] omeprazole 20 mg PO DAILY 01/05/18 01/06/18 History polyvinyl alcohol [Artificial 1 drp OPHTHALMIC (EYE) TID-QID PRN 01/05/18 History Tears (polyvin alc)] potassium chloride 10 meq PO DAILY 01/05/18 01/06/18 History quinapril 40 mg PO DAILY 01/05/18 01/06/18 History furosemide 40 mg PO DAILY 01/06/18 01/06/18 History Exam Vital signs: Vital Signs 01/06/18 06:05 01/06/18 06:10 01/06/18 09:26 Temperature 98.1 F Pulse Rate 114 H 97 H Respiratory Rate 16 17 Blood Pressure 142/101 H 187/112 H Pulse Oximetry 99 97 96 01/06/18 09:46 01/06/18 11:05 Temperature Pulse Rate Respiratory Rate Blood Pressure 180/93 H 160/99 H Pulse Oximetry Intake & Output 01/05/18 01/06/18 01/06/18 18:59 06:59 18:59 Intake Total 2350 / 2350 Balance 2350 / 2350 Weight 80.739 kg Intake: IV 2350 / 2350 Zosyn 4.5 GM Premix 4.5 gm In 100 / 100 100 ml @ 200 mls/hr IV.SIG STAT STA Rx#:[id number] NS Inj 1,000 ML @ 1000 mls/hr 1000 / 1000 IV.SIG BOLUS SAQIB Rx#:[id number] NS Inj 500 ML @ 1000 mls/hr IV. 1000 / 1000 SIG BOLUS SAQIB Rx#:[id number] Vancomycin Inj 1,000 MG In NS 250 / 250 Inj 250 ML @ 250 mls/hr IV.SIG STAT STA Rx#:[id number] Narrative: GENERAL: This is a well-nourished, well-developed patient, in no apparent distress. Somewhat confused but pleasant. SKIN: No rashes, ecchymoses or lesions. Warm and dry. HEAD: Atraumatic. Normocephalic. No temporal or scalp tenderness. EYES: Pupils equal round and reactive. No injection or drainage. ENT: Nose without bleeding, purulent drainage or septal hematoma. Airway patent. NECK: Trachea midline. No lymphadenopathy. Supple, nontender, no meningeal signs. CARDIOVASCULAR: Regular rate and rhythm without murmurs, gallops, or rubs. No JVD. RESPIRATORY: Clear to auscultation. Breath sounds equal bilaterally. No wheezes , rales, or rhonchi. GASTROINTESTINAL: Abdomen soft, diffusely tender on palpation, nondistended. No guarding. MUSCULOSKELETAL: Extremities without clubbing, cyanosis, or edema. NEUROLOGICAL: Awake and alert. Cranial nerves II through XII intact. No focal neurological deficits. Normal speech. Some level of confusion noted. Results - Labs CBC & Chem 7: 01/06/18 07:10 01/06/18 06:15 Labs: Laboratory Results - last 24 hr 01/06/18 01/06/18 01/06/18 06:15 06:30 07:10 WBC 15.1 H D RBC 4.59 Hgb 14.3 Hct 42.0 MCV 91.4 MCH 31.0 MCHC 33.9 RDW 13.3 Plt Count 215 MPV 8.5 Prelim Diff (Auto) Slide review pending Neut % (Auto) 83.7 H Lymph % (Auto) 12.8 [place] % (Auto) 3.1 Eos % (Auto) 0.0 Baso % (Auto) 0.4 Neut # (Auto) 12.6 H Lymph # (Auto) 1.9 [place] # (Auto) 0.5 Eos # (Auto) 0.0 Baso # (Auto) 0.1 WBC Differential . Diff Scan Auto diff confirmed Differential Comment . PT 10.5 INR 1.0 Sodium 142 Potassium 3.5 Chloride 112 H Carbon Dioxide 18.6 L Anion Gap 11 BUN 15 Creatinine 1.09 H Estimated GFR 48 L Random Glucose 225 H D Lactic Acid Calcium 10.3 H D Magnesium 1.9 Total Bilirubin 0.5 AST 28 ALT 19 Alkaline Phosphatase 44 L Troponin I Less than 0.02 L Total Protein 7.5 Albumin 4.1 Lipase 113 Urine Color Urine Clarity Urine pH Ur Specific [place] Urine Protein Urine Glucose (UA) Urine Ketones Urine Occult Blood Urine Nitrate Urine Bilirubin Urine Urobilinogen Ur Leukocyte Esterase Urine RBC Urine WBC Micro UA Comment Ur Microscopic Review Urine Culture Comments 01/06/18 01/06/18 08:03 08:18 WBC RBC Hgb Hct MCV MCH MCHC RDW Plt Count MPV Prelim Diff (Auto) Neut % (Auto) Lymph % (Auto) [place] % (Auto) Eos % (Auto) Baso % (Auto) Neut # (Auto) Lymph # (Auto) [place] # (Auto) Eos # (Auto) Baso # (Auto) WBC Differential Diff Scan Differential Comment PT INR Sodium Potassium Chloride Carbon Dioxide Anion Gap BUN Creatinine Estimated GFR Random Glucose Lactic Acid 5.0 H* Calcium Magnesium Total Bilirubin AST ALT Alkaline Phosphatase Troponin I Total Protein Albumin Lipase Urine Color Straw Urine Clarity Clear Urine pH 6.0 Ur Specific [place] 1.032 Urine Protein Negative Urine Glucose (UA) 150 H Urine Ketones 20 Urine Occult Blood Negative Urine Nitrate Negative Urine Bilirubin Negative Urine Urobilinogen Less than 2 Ur Leukocyte Esterase Negative Urine RBC 1 Urine WBC 2 Micro UA Comment Cath-culture not ind Ur Microscopic Review Not Reportable Urine Culture Comments Cath-cult not ind - Imaging Impressions Chest X-Ray 01/06/18 06:10 CONCLUSION: No acute cardiopulmonary abnormality is identified. Abdomen/Pelvis CT 01/06/18 06:11 CONCLUSION: 1. There are a few mildly dilated loops of small bowel in the lower abdomen. This can be a focal ileus versus some enteritis. No definite mechanical obstruction is seen. 2. There is a small amount of ascites in the upper abdomen with some free fluid around the liver and spleen. 3. There is some stable mild dilatation of the intrahepatic biliary ducts most likely reservoir effect secondary to cholecystectomy. This is not significantly changed compared to the prior exam. 4. A few nonobstructing subcentimeter stones are seen in the left kidney. 5. Bilateral simple appearing renal cysts. Head CT 01/06/18 06:16 CONCLUSION: 1. Stable CT scan of the brain compared to the prior examination. 2. Stable bilateral cortical atrophy and chronic white matter changes. 3. Stable 1.6 cm calcified left parafalcine meningioma high along the left cerebral vertex.. . Caprini VTE Risk Assessment Caprini VTE Risk Assessment: No/Low Risk (score <= 1) Caprini Risk Assessment Model: Point Value = 1 Point Value = 2 Point Value = 3 Point Value = 5 Age 41-60 Minor surgery BMI > 25 kg/m2 Swollen legs Varicose veins or History of unexplained or recurrent spontaneous Oral contraceptives or hormone replacement Sepsis (< 1 month) Serious lung disease, including pneumonia (< 1 month) Abnormal pulmonary function Acute myocardial infarction Congestive heart failure (< 1 month) History of inflammatory bowel disease Medical patient at bed rest Age 61-74 Arthroscopic surgery Major open surgery (> 45 min) Laparoscopic surgery (> 45 min) Malignancy Confined to bed (> 72 hours) Immobilizing plaster cast Central venous access Age >= 75 History of VTE Family history of VTE Factor V Leiden Prothrombin [id number] Lupus anticoagulant Anticardiolipin antibodies Elevated serum homocysteine Heparin-induced thrombocytopenia Other congenital or acquired thrombophilia Stroke (< 1 month) Elective arthroplasty Hip, pelvis, or leg fracture Acute spinal cord injury (< 1 month) Prophylaxis Regimen: Total Risk Factor Score Risk Level Prophylaxis Regimen 0-1 Low Early ambulation 2 Moderate Order ONE of the following: *Sequential Compression Device (SCD) *Heparin 5000 units SQ BID 3-4 Higher Order ONE of the following medications: *Heparin 5000 units SQ TID *Enoxaparin/Lovenox 40 mg SQ daily (WT < 150 kg, CrCl > 30 mL/min) *Enoxaparin/Lovenox 30 mg SQ daily (WT < 150 kg, CrCl > 10-29 mL/min) *Enoxaparin/Lovenox 30 mg SQ BID (WT < 150 kg, CrCl > 30 mL/min) AND/OR *Sequential Compression Device (SCD) 5 or more Highest Order ONE of the following medications: *Heparin 5000 units SQ TID (Preferred with Epidurals) *Enoxaparin/Lovenox 40 mg SQ daily (WT < 150 kg, CrCl > 30 mL/min) *Enoxaparin/Lovenox 30 mg SQ daily (WT < 150 kg, CrCl > 10-29 mL/min) *Enoxaparin/Lovenox 30 mg SQ BID (WT < 150 kg, CrCl > 30 mL/min) AND *Sequential Compression Device (SCD) Assessment and Plan - Plan Ms. Long is an 82-year-old female with a history of osteoporosis, anxiety who presents to the emergency department on 01/06/2018 due to abdominal pain. She gives inconsistent timeframe of her symptoms. However she reports no bowel movement for 7-10 days. She denies any chest pain, shortness of breath , fever or chills. CT abdomen pelvis showed possible ileus or enteritis. No mechanical obstruction noted. Sepsis (WBC 10.1 K, heart rate above 100, suspected infection intra-abdominal, lactic acid 5.0, 5.6) Acute abdominal pain Etiology unknown. Will keep patient on Zosyn 3.375 g every 6 hours Repeat lactic acid level at 10 PM. CBC, BMP in the AM. Morphine for pain management. Continue IV fluid. Bowel regimen in place. If symptoms not improved, we can consult gastroenterology. Hyperglycemia Blood glucose 225 on admission. Will keep patient on sliding scale insulin. Anxiety -continue diazepam 10 mg p.o. twice daily Dementia Patient likely has advanced dementia. Given her advanced dementia and overall deconditioning, will consult palliative care to address any end-of-life goals. Full code. SCDs.
[2018-01-06] MEDS: Sod Chloride 0.9% Inj 1,000 ML IV.CONT SCH ×2 (11:41→21:41)
--- NOTE | 2018-01-06 12:50 | ECG ---
Date Performed: 01/06/2018 Time Performed: 06:14:30 PTAGE: 82 years EKG: SINUS TACHYCARDIA WITH FIRST DEGREE AV BLOCK WITH FREQUENT VENTRICULAR PREMATURE COMPLEXES POSSIBLE LEFT ATRIAL ENLARGEMENT NONSPECIFIC T-WAVE ABNORMALITY ABNORMAL ECG INTERPRETATION BASED ON A DEFAULT AGE OF 40 YEARS Since the PREVIOUS TRACING , no significant change noted PREVIOUS TRACIN01/05/2018 13.29 DOCTOR: Kai Stevens Interpretating Date/Time 01/06/2018 12:49:52
[2018-01-06] MEDS: Piperacil/Tazo 3.375 GM Premix 50 ML IV.SIG SCH ×2 (14:00→20:04)
[2018-01-06] MEDS ORDERED: Dextrose 50% in Water 50 ML Vial IV.PUSH PRN (18:59)
[2018-01-06] MEDS: Insulin NovoLOG Aspart Correctional Sugar Inj SQ SCH (20:33)
[2018-01-07] MEDS: Piperacil/Tazo 3.375 GM Premix 50 ML IV.SIG SCH ×4 (01:39→21:00)
[2018-01-07 08:06] LABS: Hemoglobin 13.7 gm/dL (11.6-15.3); Lymph % (Auto) 10.3 % (9.0-44.0); Mean Corpuscular HGB Conc 34.2 % (32.0-36.0); Mean Corpuscular Hemoglobin 31.2 pg (27.0-34.0); Mean Corpuscular Volume 91.2 fL (80.0-100.0); Mean Platelet Volume 8.6 fL (7.0-11.0); Mono # (Auto) 1.3 th/mm3 (0.0-0.9); Mono % (Auto) 6.4 % (0.0-8.0); Neut # (Auto) 16.5 th/mm3 (1.8-7.7); Neut % (Auto) 83.3 % (16.0-70.0); Platelet Count 195 th/mm3 (150-450); Red Blood Count 4.38 mil/mm3 (4.00-5.30); Red Cell Distribution Width 13.4 % (11.6-17.2); White Blood Count 19.8 th/mm3 (4.0-11.0)
[2018-01-07 08:21] LABS: Calcium 8.3 mg/dL (8.5-10.1); Carbon Dioxide 23.4 meq/L (21.0-32.0); Potassium 3.4 meq/L (3.5-5.1)
[2018-01-07] MEDS: Insulin NovoLOG Aspart Correctional Sugar Inj SQ SCH ×4 (09:12→23:49)
[2018-01-07] MEDS: Pantoprazole Sodium 20 MG DR Tablet PO SCH (09:13)
--- NOTE | 2018-01-07 10:23 | P.CONPAL ---
Consult Service: Palliative Care Requesting Physician: Valente Rogers Reason for Consult: a. To assist with evaluation and management of symptoms including: Pain, anxiety, b. To assist medical decision maker(s) with: better understanding of current medical conditions; weighing benefits/burdens of medical treatment options; making medical treatment decisions. Primary Care Provider: Jozef Bolanos History of Present Illness History of Present Illness: Mrs. Long is an 82-year-old female with a past medical history of breast cancer s/p bilateral mastectomy, hypertension, meningioma of the brain, TIA, anxiety, osteoarthritis and osteoporosis. Patient presented to the emergency room on 03/2017 with complaints of severe diffuse abdominal pain, nausea, vomiting, generalized weakness and arthralgias. Patient was seen in the emergency room on 01/06/18 with complaints for palpitations and dizziness. Patient was noted to have hypokalemia and first-degree AV block with frequent PVCs. Potassium supplementation was prescribed and patient was discharged back home. ER course: * Vital signs: Temperature 98.1F, pulse 114, respirations 16, BP 142/101, O2 saturation 99% * Laboratory workup revealed WBC 15.1, hemoglobin 14.3, hematocrit 42.0, platelet count 215, PT 10.5, INR 1.0, sodium 142, potassium 3.5, BUN/creatinine 15/1.09, random glucose 225, calcium 10.3, AST 28, ALT 19, troponin less than 0.02, total protein 7.5, albumin 4.1, lactic acid 5.0 * EKG revealed sinus tachycardia with first-degree AV block with frequent ventricular premature complexes possible left atrial enlargement nonspecific T wave abnormality. * Abdomen/pelvis CT revealed a few mildly dilated loops of small bowel in the lower abdomen which could be a focal ileus versus some enteritis with no definite mechanical obstruction seen. Small amount of ascites in the upper abdomen with some free fluid around the liver and spleen./Stable mild dilatation of the intrahepatic biliary ducts most likely reason for defect secondary to cholecystectomy. A few nonobstructing subcentimeter stones seen in the left kidney and bilateral simple appearing renal cysts. * Head CT revealed stable bilateral cortical atrophy and chronic white matter changes and stable 1.6 cm calcified left parafalcine meningioma high along the left cerebral vertex. * Chest x-ray showed no acute cardiopulmonary abnormality. * Blood cultures collected-results pending * Urinalysis negative for leukocyte esterase and nitrates with high urine glucose (150). Palliative care consulted to assist with symptom management and establishment of goals of medical treatment. Patient seen and examined in the room. Patient is awake, alert, oriented to self, place and situation. She was able to state her for name, date, place and situation. Patient was able to state her medical history and surgeries she has had in the past. Patient seems to be able to weigh benefits and burdens of treatment and appears to have insight regarding her medical condition. Introduced palliative care and his role in symptom management and establishment of goals of medical treatment. Obtained psychosocial, past medical history and events leading to this hospitalization. Patient even stated that she was in the emergency room on Sunday and was sent home and had to come back the following day with worsening abdominal pain, nausea vomiting and generalized weakness. Patient admitted to completion of power of stone sandblaster papers in the past but had to go and rescind due to he son mismanagement of her funds. Patient states that he only living relative is his son and she does not have anyone else for contrast to designated as a healthcare surrogate. Explained to patient how a health care proxy is determined per [place] Statute. Patient is not able to state anyone is a healthcare surrogate this time. Advised CODE STATUS, discussed CPR, benefits, limitations and complications. Patient elected to not resuscitate/DO NOT INTUBATE. Patient states that she is 82 years old and she would not want to end up in a vegetative state and have , "things like feeding tubes" placed. She expresses that she would not want to live like that. She states that given her age and multiple ongoing comorbidities , she understands that she can at anytime and when that time comes she does not want any heroic measures taken, she would like to peacefully. She states that even though her son does not want anything to do with her, he knows that she would like to be cremated. Patient mentioned that if she is not able to "bounce back" to her normal state she may need to consider moving into a halfway. Offered to call patient`s son and update him on patient`s medical status and patient declined. Case discussed with Luli Aldridge APRN and bedside RN. . Function/Cognitive Trajectory: Patient is a resident at [facility] assisted living [facility] per patient. Patient states that she has her own apartment and she is independent of all her ADLs. She ambulates with a Rollator walker. Patient is continent of bowel and bladder. Patient denies recent loss of weight. She is able to verbalize her needs. Review of Systems Constitutional: Reports chills, Reports lack of energy, Reports malaise, Reports weakness, Denies increased appetite, Denies weight loss Eyes: Denies blurry vision, Denies bulging eyes, Denies sensitivity to light Ears, Nose, Mouth, and Throat: Denies abnormal hearing, Denies nasal congestion , Denies sore throat Cardiovascular: Denies chest pain, Denies generalized swelling, Denies rapid, pounding, or irregular heartbeat, Denies shortness of breath Respiratory: Denies chest congestion, Denies cough, Denies shortness of breath Gastrointestinal: Reports abdominal pain, Reports constipation (Last BM on 01/03-patient states that she usually takes magnesium citrate), Reports nausea, Reports vomiting, Denies black, tarry stools, Denies incontinent of stools Genitourinary: Reports painful urination, Denies blood in urine Musculoskeletal: Reports body aches, Reports joint pain (Pain to bilateral knees , neck, shoulders), Reports neck pain Skin/Breast: Reports unusual bruising, Reports other (History of breast cancer and bilateral mastectomy) Neurologic: Reports dizziness, Denies abnormal hearing, Denies confusion, Denies frequent falls Psychiatric: Reports anxiety, Denies change in appetite Endocrine: Denies excessive sweating Hematologic/Lymphatic: Reports easy bruising PMFSH - History History Provided By: Medical Record (Dating back as in 02/09/2011; 2016) - Medical History Medical History: Medical History (Last Updated 01/07/18 @ 10:42 by Domo Valadez) H/O meningioma of the brain History of TIA (transient ischemic attack) Breast cancer Hypertension Osteoarthritis Osteoporosis - Surgical History Surgical History: Surgical History (Last Updated 01/07/18 @ 10:45 by Domo Valadez) History of cataract surgery History of knee replacement Hx of cholecystectomy History of endoscopy (Resolved) Status post stereotactic radiosurgery (Resolved) H/O bilateral mastectomy - Family History Family History: Family History (Last Updated 01/07/18 @ 10:32 by Domo Valadez) Mother Dementia Father Diabetes mellitus Sister Diabetes mellitus - Social History I have reviewed the patient's Social History: Yes - Tobacco History Second Hand Smoke Exposure: No Tobacco Use In Past 30 Days: No Smoking Status: Never smoker - Alcohol History How Often Do You Have a Drink Containing Alcohol: Never - Substance Use History Substance History: No History of Abuse - Travel History Recent Travel in the [place] Within the Last 8 Weeks: No Recent Travel Out of the Country Within the Last 8 Weeks: No - Immunization History Tetanus Immunization: Unsure Tetanus Immunization Year if Known: 2017 Medications and Allergies Active Medications: Active Medications Acetaminophen (Tylenol) 650 mg PO Q4H PRN PRN Reason: Headache, fever, pain 1-4 Al Hydroxide/Mg Hydroxide (Milk Of Magnesia Liq) 30 ml PO Q12H PRN PRN Reason: Mild Constipation Bisacodyl (Dulcolax Supp) 10 mg RECTAL DAILY PRN PRN Reason: SEVERE CONSITIPATION Last Admin: 01/07/18 02:56 Dose: 10 mg Dextrose (D50w Vial) 50 ml IV.PUSH UNSCH PRN PRN Reason: PER HYPOGLYCEMIA PROTOCOL Diazepam (Valium) 10 mg PO BID [facility] Last Admin: 01/07/18 09:13 Dose: 10 mg Glucagon (Glucagon Inj) 1 mg OTHER PRN PRN PRN Reason: for Hypoglycemia Protocol Piperacillin/Tazobactam/Dextrose (Zosyn 3.375 Gm Premix) 50 mls @ 100 mls/hr IV.SIG Q6H [facility] Last Admin: 01/07/18 09:12 Dose: 100 mls/hr Sodium Chloride (Ns Inj) 1,000 mls @ 100 mls/hr IV.CONT .Q10H [facility] Last Admin: 01/06/18 21:41 Dose: 100 mls/hr Insulin Aspart (Novolog Insulin Correctional Sugar Inj) 0 unit SQ ACHS [facility]; Protocol Last Admin: 01/07/18 09:12 Dose: Not Given Lactulose (Lactulose Liq) 30 ml PO DAILY PRN PRN Reason: SEVERE CONSITIPATION Last Admin: 01/06/18 20:16 Dose: 30 ml Morphine Sulfate (Morphine Inj) 4 mg IV.PUSH Q4H PRN PRN Reason: Pain 5-10 Last Admin: 01/06/18 12:37 Dose: 4 mg Ondansetron HCl (Zofran Inj) 4 mg IV.PUSH Q6H PRN PRN Reason: NAUSEA OR VOMITING Pantoprazole Sodium (Protonix) 20 mg PO DAILY [facility] Last Admin: 01/07/18 09:13 Dose: 20 mg Sennosides (Senokot) 17.2 mg PO Q12H PRN PRN Reason: Moderate Constipation Last Admin: 01/06/18 20:16 Dose: 17.2 mg Sodium Chloride (Ns Flush) 2 ml IV.FLUSH UNSCH PRN PRN Reason: FLUSH AFTER USING IV ACCESS Last Admin: 01/06/18 06:42 Dose: 2 ml Sodium Chloride (Ns Flush) 2 ml IV.FLUSH BID [facility] Last Admin: 01/07/18 09:13 Dose: 2 ml Sodium Chloride (Ns Flush) 2 ml IV.FLUSH PRN PRN PRN Reason: FLUSH AFTER USING IV ACCESS Allergies Allergy/AdvReac Type Severity Reaction Status Date / Time sulfamethoxazole Allergy Severe Hives Verified 01/06/18 06:11 trimethoprim Allergy Severe Hives Verified 01/06/18 06:11 *MDRO Multi-Drug Resistant AdvReac Unknown Anaphylaxis Uncoded 01/06/18 06:11 Organism Home Medications Medication Instructions Recorded Confirmed Type acetaminophen [Mapap 650 mg PO Q6H PRN 01/05/18 01/06/18 History (acetaminophen)] alendronate 70 mg PO QWEEK 01/05/18 01/06/18 History atenolol 100 mg PO DAILY 01/05/18 01/06/18 History clopidogrel 75 mg PO DAILY 01/05/18 01/06/18 History diazepam 10 mg PO BID 01/05/18 01/06/18 History vepjdmvtlcyk-cslimwwn-nioxji 1 tab PO DAILY 01/05/18 01/06/18 History [Cerovite Senior] omeprazole 20 mg PO DAILY 01/05/18 01/06/18 History polyvinyl alcohol [Artificial 1 drp OPHTHALMIC (EYE) TID-QID PRN 01/05/18 History Tears (polyvin alc)] potassium chloride 10 meq PO DAILY 01/05/18 01/06/18 History quinapril 40 mg PO DAILY 01/05/18 01/06/18 History furosemide 40 mg PO DAILY 01/06/18 01/06/18 History Advance Directives Living Will: No Healthcare Surrogate: No Today's verbally stated goals: Patient wants to get better and go back to the assisted living facility. Made herself a DNR. . Physical Exam Vital Signs: Vital Signs - 24 hr 01/06/18 11:05 01/06/18 12:40 01/06/18 14:58 Temperature Pulse Rate 109 H Respiratory Rate 19 16 Blood Pressure 160/99 H 158/69 H Pulse Oximetry 100 01/06/18 16:00 01/06/18 20:00 01/06/18 20:44 Temperature 97.9 F 98.9 F Pulse Rate 108 H 120 H 143 H Respiratory Rate 14 20 Blood Pressure 121/82 118/70 Pulse Oximetry 94 L 94 L 01/06/18 23:58 01/07/18 00:00 01/07/18 04:00 Temperature 98.7 F 98.4 F Pulse Rate 117 H 81 90 Respiratory Rate 18 18 Blood Pressure 154/72 H 133/78 Pulse Oximetry 94 L 93 L 01/07/18 04:05 01/07/18 08:00 Temperature 97.3 F L Pulse Rate 113 H 104 H Respiratory Rate 20 Blood Pressure 140/98 H Pulse Oximetry 96 I&O: Intake & Output 01/05/18 01/06/18 01/07/18 01/08/18 06:59 06:59 06:59 06:59 Intake Total 3450 / 3450 Output Total 2 / 2 Balance 3448 / 3448 Weight 80.739 kg 79.7 kg Physical Exam: CONSTITUTIONAL/GENERAL: This is an adequately nourished patient, in no apparent distress. TUBES/LINES/DRAINS: PIV, SKIN: No jaundice, rashes, or lesions. Ecchymoses on upper extremities. No wounds seen anteriorly. Normothermic. HEAD: Atraumatic. Normocephalic. EYES: Pupils equal and round and reactive. Extraocular motions intact. No scleral icterus. No injection or drainage. Fundi not examined. ENT: Hearing grossly normal. No nasal bleeding or discharge. Moist oral mucosa. NECK: Trachea midline. Supple, nontender. CARDIOVASCULAR: Regular rate and rhythm without murmurs, gallops, or rubs. No JVD. Peripheral pulses symmetric. RESPIRATORY/CHEST: Symmetric, unlabored respirations. Diminished breath sounds. No wheezes, rales, or rhonchi. GASTROINTESTINAL: Abdomen soft, non-tender, nondistended. No guarding. Bowel sounds present. GENITOURINARY: Without palpable bladder distension. MUSCULOSKELETAL: Extremities without clubbing, cyanosis, or edema. No joint tenderness or effusion noted. No calf tenderness. No mottling or clubbing. LYMPHATICS: Did not assess NEUROLOGICAL: Awake and alert. Motor and sensory grossly within normal limits. Follows commands. Cognitively sharp. Moves all extremities. PSYCHIATRIC: No obvious anxiety/depression. no apparent hallucinations or other psychotic thought process. Diagnostic Tests Laboratory: Laboratory Results - last 72 hr 01/06/18 01/06/18 01/06/18 06:15 06:30 07:10 WBC 15.1 H D RBC 4.59 Hgb 14.3 Hct 42.0 MCV 91.4 MCH 31.0 MCHC 33.9 RDW 13.3 Plt Count 215 MPV 8.5 Prelim Diff (Auto) Slide review pending Neut % (Auto) 83.7 H Lymph % (Auto) 12.8 [place] % (Auto) 3.1 Eos % (Auto) 0.0 Baso % (Auto) 0.4 Neut # (Auto) 12.6 H Lymph # (Auto) 1.9 [place] # (Auto) 0.5 Eos # (Auto) 0.0 Baso # (Auto) 0.1 WBC Differential . Diff Scan Auto diff confirmed Differential Comment . PT 10.5 INR 1.0 Sodium 142 Potassium 3.5 Chloride 112 H Carbon Dioxide 18.6 L Anion Gap 11 BUN 15 Creatinine 1.09 H Estimated GFR 48 L POC Glucose Random Glucose 225 H D Lactic Acid Calcium 10.3 H D Magnesium 1.9 Total Bilirubin 0.5 AST 28 ALT 19 Alkaline Phosphatase 44 L Troponin I Less than 0.02 L Total Protein 7.5 Albumin 4.1 Lipase 113 Urine Color Urine Clarity Urine pH Ur Specific [place] Urine Protein Urine Glucose (UA) Urine Ketones Urine Occult Blood Urine Nitrate Urine Bilirubin Urine Urobilinogen Ur Leukocyte Esterase Urine RBC Urine WBC Micro UA Comment Ur Microscopic Review Urine Culture Comments 01/06/18 01/06/18 01/06/18 08:03 08:18 11:35 WBC RBC Hgb Hct MCV MCH MCHC RDW Plt Count MPV Prelim Diff (Auto) Neut % (Auto) Lymph % (Auto) [place] % (Auto) Eos % (Auto) Baso % (Auto) Neut # (Auto) Lymph # (Auto) [place] # (Auto) Eos # (Auto) Baso # (Auto) WBC Differential Diff Scan Differential Comment PT INR Sodium Potassium Chloride Carbon Dioxide Anion Gap BUN Creatinine Estimated GFR POC Glucose Random Glucose Lactic Acid 5.0 H* 5.6 H* Calcium Magnesium Total Bilirubin AST ALT Alkaline Phosphatase Troponin I Total Protein Albumin Lipase Urine Color Straw Urine Clarity Clear Urine pH 6.0 Ur Specific [place] 1.032 Urine Protein Negative Urine Glucose (UA) 150 H Urine Ketones 20 Urine Occult Blood Negative Urine Nitrate Negative Urine Bilirubin Negative Urine Urobilinogen Less than 2 Ur Leukocyte Esterase Negative Urine RBC 1 Urine WBC 2 Micro UA Comment Cath-culture not ind Ur Microscopic Review Not Reportable Urine Culture Comments Cath-cult not ind 01/06/18 01/06/18 01/07/18 20:23 22:21 07:03 WBC RBC Hgb Hct MCV MCH MCHC RDW Plt Count MPV Prelim Diff (Auto) Neut % (Auto) Lymph % (Auto) [place] % (Auto) Eos % (Auto) Baso % (Auto) Neut # (Auto) Lymph # (Auto) [place] # (Auto) Eos # (Auto) Baso # (Auto) WBC Differential Diff Scan Differential Comment PT INR Sodium 148 H Potassium 3.4 L Chloride 115 H Carbon Dioxide 23.4 Anion Gap 10 BUN 20 H Creatinine 1.24 H Estimated GFR 42 L POC Glucose 177 H Random Glucose 143 H Lactic Acid 7.2 H* Calcium 8.3 L D Magnesium Total Bilirubin AST ALT Alkaline Phosphatase Troponin I Total Protein Albumin Lipase Urine Color Urine Clarity Urine pH Ur Specific [place] Urine Protein Urine Glucose (UA) Urine Ketones Urine Occult Blood Urine Nitrate Urine Bilirubin Urine Urobilinogen Ur Leukocyte Esterase Urine RBC Urine WBC Micro UA Comment Ur Microscopic Review Urine Culture Comments 01/07/18 01/07/18 01/07/18 07:23 07:23 08:15 WBC 19.8 H RBC 4.38 Hgb 13.7 Hct 40.0 MCV 91.2 MCH 31.2 MCHC 34.2 RDW 13.4 Plt Count 195 MPV 8.6 Prelim Diff (Auto) Neut % (Auto) 83.3 H Lymph % (Auto) 10.3 [place] % (Auto) 6.4 Eos % (Auto) 0.0 Baso % (Auto) 0.0 Neut # (Auto) 16.5 H Lymph # (Auto) 2.0 [place] # (Auto) 1.3 H Eos # (Auto) 0.0 Baso # (Auto) 0.0 WBC Differential . Diff Scan Differential Comment Auto diff final PT INR Sodium Potassium Chloride Carbon Dioxide Anion Gap BUN Creatinine Estimated GFR POC Glucose 139 H Random Glucose Lactic Acid 2.5 H Calcium Magnesium Total Bilirubin AST ALT Alkaline Phosphatase Troponin I Total Protein Albumin Lipase Urine Color Urine Clarity Urine pH Ur Specific [place] Urine Protein Urine Glucose (UA) Urine Ketones Urine Occult Blood Urine Nitrate Urine Bilirubin Urine Urobilinogen Ur Leukocyte Esterase Urine RBC Urine WBC Micro UA Comment Ur Microscopic Review Urine Culture Comments Result Diagrams: 01/07/18 07:23 01/07/18 07:03 Microbiology: Microbiology 01/06/18 08:03 Aerobic Blood Culture - Preliminary Blood - Peripheral No growth in 1 day Anaerobic Blood Culture - Preliminary No growth in 1 day 01/06/18 08:03 Aerobic Blood Culture - Preliminary Blood - Peripheral No growth in 1 day Anaerobic Blood Culture - Preliminary No growth in 1 day Imaging: Chest X-Ray 01/06/18 06:10 CONCLUSION: No acute cardiopulmonary abnormality is identified. Abdomen/Pelvis CT 01/06/18 06:11 CONCLUSION: 1. There are a few mildly dilated loops of small bowel in the lower abdomen. This can be a focal ileus versus some enteritis. No definite mechanical obstruction is seen. 2. There is a small amount of ascites in the upper abdomen with some free fluid around the liver and spleen. 3. There is some stable mild dilatation of the intrahepatic biliary ducts most likely reservoir effect secondary to cholecystectomy. This is not significantly changed compared to the prior exam. 4. A few nonobstructing subcentimeter stones are seen in the left kidney. 5. Bilateral simple appearing renal cysts. Head CT 01/06/18 06:16 CONCLUSION: 1. Stable CT scan of the brain compared to the prior examination. 2. Stable bilateral cortical atrophy and chronic white matter changes. 3. Stable 1.6 cm calcified left parafalcine meningioma high along the left cerebral vertex.. . Patient/Family Conference Family Conference Location: Bedside Issues Discussed: * Palliative care role, purpose, approach * Additional medical, psychosocial, and spiritual history * Patients general health, functional status, and cognitive changes in the months leading up to the current hospitalization * Patient/family understanding of the current medical problems * Patient/family understanding of prognosis * Patients goals of care as best understood from advance directives and/or conversations and/or values * Current medical treatment options and benefits/burdens of those options * Likely scenarios comparing ongoing aggressive care with a transition to comfort measures only * Questions answered to the best of my ability * Palliative care contact information provided Assessment and Plan - Disease Oriented Problem List (1) Sepsis (2) Acidosis, lactic (3) Acute kidney injury (4) History of TIA (transient ischemic attack) (5) Hyperglycemia - Symptom Scale (2) Anxiety 0-10 Scale: Unable to quantify Pertinent Non-Medical Issues: Psychosocial: Patient was born and raised in [place]. She moved to [place] in 1969. Patient was twice once and is now . She has 1 son Teodoro Fournier-she states does not want anything to do with her. Patient is a . 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 She is retired. Patient states that she has lived at the [facility] living for the past 3 years. She enjoys reading Spiritual: Patient is a [employer]. She goes to [employer]. Open to tufter hand visits Legal: Patient stated that she is completed a power of stone sandblaster in the past but rescinded it due to her son mismanaging funds. Patient was not able to name anyone is a healthcare surrogate. She states that she currently does not have anyone she contrast who can serve as her HCS and her son is her only living relative. Explained to patient how a health care proxy is determined per [place] Statute. Ethical issues impacting care: None identified at this time. . Important Contacts: Son-Hunter Fournier [phone] Friend-Ledy Atkinson [phone] Nataliya [place] ([place]) - [phone] Prognosis: Mrs. Long is an 82-year-old female with a past medical history of breast cancer s/p bilateral mastectomy, hypertension, meningioma of the brain, TIA, anxiety, osteoarthritis and osteoporosis. Patient presented to the emergency room on 03/2017 with complaints of severe diffuse abdominal pain, nausea, vomiting, generalized weakness and arthralgias. Clinical course complicated with sepsis. If patient`s sepsis is managed, patient will most likely medically improve though she remains at risk for complications, deterioration deterioration. Code Status: No Code DNR Plan: PLAN: Legal decision maker: Patient is alert and oriented to self, place and situation. Seems to have insight regarding her medical condition and is able to weigh burdens and benefits of treatment. She is currently able to participate in medical decision making. In the event that patient is incapacitated, her son Teodoro Fournier who would serve as his healthcare proxy. Goals: Aggressive short of no code. Patient made herself a DNR. Patient currently does not have anyone when she can trust to designate as her health care surrogate. She states that her son who is her only living relative does not want to have anything to do with her. Explained to patient how a health care proxy is determined per [place] Statute. Patient is hopeful to get better and go back to her assisted living facility. CODE STATUS: No code DNR/DNI SYMPTOMS: * Pain: Patient came in complaining with abdominal pain and joint pain. Morphine sulfate 4 mg IV push every 4 hours prn available. * Anxiety: Patient has a history of anxiety. Currently on diazepam 10 mg twice daily. * Constipation: Patient reports occasionally getting constipated. Per patient her last BM was on 01/03/18. Reports that at home she usually uses magnesium citrate. Milk of magnesia 30 mL's p.o. q. 12 prn, Dulcolax suppository prn daily ordered. Continue to monitor Palliative care will continue to follow the patient during hospital course as condition evolves, to assist patient/decision-maker with understanding of their medical conditions, weighing benefits/burdens of treatment options, for clarification of goals of treatment. Additionally will assist with any symptoms of palliative concern Appreciation Thank you for the opportunity to participate in the care of Maribell Long. Attestation Attestation: To help prompt me to consider important information that might be impacting today's encounter and assessment, information from prior notes written by myself or my colleagues may have been "brought forward" into today's note. My signature on this note, however, is an attestation that I personally performed the exam, history, and/or decision-making noted today, and, unless otherwise indicated, the interactions with patient, family, and staff as well as the review of records all occurred today. I also attest that the listed assessment and stated plan reflect my best clinical judgment today based on the combination of historical information, prior notes, and today's exam/ interactions. When time spent is documented, it refers only to time spent today by the signer, or if indicated, combined time spent today by collaborating physician/nurse practitioner.
--- NOTE | 2018-01-07 11:18 | P.PN ---
Subjective Interval history: Follow up for sepsis: pt. seen and examined, awake, alert, oriented x 3. Has good recall of why she is here. C/O upper abd. tenderness, more RUQ, no N/V/D. Appetite fair. No urinary symptoms. No cp, no sob. Tachycardic, Tele reviewed, ST with PACs, ? afib. Pt. pleasant, lives at [facility], has no social support. States son stopped talking to her about 1 year ago. Goals of care and advanced directives discussed, has nobody designated to make decisions. Doesn't want artificial means to keep her alive, no CP, no intubation, no ACLS. Agrees with DNR. Endorses some depression, denies suicidal ideation. Physical Exam Vital signs: Vital Signs 01/06/18 12:40 01/06/18 14:58 01/06/18 16:00 Temperature 97.9 F Pulse Rate 109 H 108 H Respiratory Rate 19 16 14 Blood Pressure 158/69 H 121/82 Pulse Oximetry 100 94 L 01/06/18 20:00 01/06/18 20:44 01/06/18 23:58 Temperature 98.9 F Pulse Rate 120 H 143 H 117 H Respiratory Rate 20 Blood Pressure 118/70 Pulse Oximetry 94 L 01/07/18 00:00 01/07/18 04:00 01/07/18 04:05 Temperature 98.7 F 98.4 F Pulse Rate 81 90 113 H Respiratory Rate 18 18 Blood Pressure 154/72 H 133/78 Pulse Oximetry 94 L 93 L 01/07/18 08:00 Temperature 97.3 F L Pulse Rate 104 H Respiratory Rate 20 Blood Pressure 140/98 H Pulse Oximetry 96 Intake & Output 01/06/18 01/07/18 01/07/18 18:59 06:59 18:59 Intake Total 2350 / 2350 1100 / 1100 Output Total 2 / 2 Balance 2350 / 2350 1098 / 1098 Weight 79.7 kg Intake: IV 2350 / 2350 1100 / 1100 NS Inj 1,000 ML @ 100 mls/hr IV 1000 / 1000 .CONT .Q10H SAQIB Rx#:[id number] Zosyn 3.375 GM Premix 50 ML @ 100 / 100 100 mls/hr IV.SIG Q6H SAQIB Rx#: [id number] Zosyn 4.5 GM Premix 4.5 gm In 100 / 100 100 ml @ 200 mls/hr IV.SIG STAT STA Rx#:[id number] NS Inj 1,000 ML @ 1000 mls/hr 1000 / 1000 IV.SIG BOLUS SAQIB Rx#:[id number] NS Inj 500 ML @ 1000 mls/hr IV. 1000 / 1000 SIG BOLUS SAQIB Rx#:[id number] Vancomycin Inj 1,000 MG In NS 250 / 250 Inj 250 ML @ 250 mls/hr IV.SIG STAT STA Rx#:[id number] Output: Urine 2 / 2 Other: # Voids 2 # Urine Diapers 2 Narrative: GENERAL: well developed, well nourished, elderly female. SKIN: No rashes, ecchymoses or lesions. Warm and dry. HEAD: Atraumatic. Normocephalic. No temporal or scalp tenderness. EYES: Pupils equal round and reactive. No injection or drainage. ENT: Nose without bleeding, purulent drainage or septal hematoma. Airway patent. NECK: Trachea midline. No lymphadenopathy. Supple, nontender, no meningeal signs. CARDIOVASCULAR: S1, S2, irregular at times, without murmurs, gallops, or rubs. No JVD. RESPIRATORY: Clear to auscultation. Breath sounds equal bilaterally. No wheezes , rales, or rhonchi. GASTROINTESTINAL: Abdomen soft, diffusely tender on palpation, more RUQ, nondistended. No guarding. MUSCULOSKELETAL: Extremities without clubbing, cyanosis, trace ankle edema. NEUROLOGICAL: Awake, alert, oriented x3. Speech clear, following commands. No focal deficits. - Urinary Catheter Management Straight Cath placed during this visit: yes, but has since been removed by the nurse Reason for continuing: Not indwelling catheter Insertion date: 01/06/18 Insertion time: 08: Removal date: 01/06/18 Removal time: 08:13 Results - Labs CBC & Chem 7: 01/07/18 07:23 01/07/18 07:03 Laboratory Results - last 24 hr 01/06/18 01/06/18 01/06/18 11:35 20:23 22:21 WBC RBC Hgb Hct MCV MCH MCHC RDW Plt Count MPV Neut % (Auto) Lymph % (Auto) [place] % (Auto) Eos % (Auto) Baso % (Auto) Neut # (Auto) Lymph # (Auto) [place] # (Auto) Eos # (Auto) Baso # (Auto) WBC Differential Differential Comment Sodium Potassium Chloride Carbon Dioxide Anion Gap BUN Creatinine Estimated GFR POC Glucose 177 H Random Glucose Lactic Acid 5.6 H* 7.2 H* Calcium 01/07/18 01/07/18 01/07/18 07:03 07:23 07:23 WBC 19.8 H RBC 4.38 Hgb 13.7 Hct 40.0 MCV 91.2 MCH 31.2 MCHC 34.2 RDW 13.4 Plt Count 195 MPV 8.6 Neut % (Auto) 83.3 H Lymph % (Auto) 10.3 [place] % (Auto) 6.4 Eos % (Auto) 0.0 Baso % (Auto) 0.0 Neut # (Auto) 16.5 H Lymph # (Auto) 2.0 [place] # (Auto) 1.3 H Eos # (Auto) 0.0 Baso # (Auto) 0.0 WBC Differential . Differential Comment Auto diff final Sodium 148 H Potassium 3.4 L Chloride 115 H Carbon Dioxide 23.4 Anion Gap 10 BUN 20 H Creatinine 1.24 H Estimated GFR 42 L POC Glucose Random Glucose 143 H Lactic Acid 2.5 H Calcium 8.3 L D 01/07/18 08:15 WBC RBC Hgb Hct MCV MCH MCHC RDW Plt Count MPV Neut % (Auto) Lymph % (Auto) [place] % (Auto) Eos % (Auto) Baso % (Auto) Neut # (Auto) Lymph # (Auto) [place] # (Auto) Eos # (Auto) Baso # (Auto) WBC Differential Differential Comment Sodium Potassium Chloride Carbon Dioxide Anion Gap BUN Creatinine Estimated GFR POC Glucose 139 H Random Glucose Lactic Acid Calcium Microbiology 01/06/18 08:03 Blood - Peripheral Aerobic Blood Culture - Preliminary No growth in 1 day 01/06/18 08:03 Blood - Peripheral Anaerobic Blood Culture - Preliminary No growth in 1 day 01/06/18 08:03 Blood - Peripheral Aerobic Blood Culture - Preliminary No growth in 1 day 01/06/18 08:03 Blood - Peripheral Anaerobic Blood Culture - Preliminary No growth in 1 day Assessment and Plan - Assessment (1) Abdominal pain Code(s): R10.9 - Unspecified abdominal pain Status: Acute (2) Acidosis, lactic Code(s): E87.2 - Acidosis Status: Acute (3) Sepsis Code(s): A41.9 - Sepsis, unspecified organism Status: Acute (4) Hypernatremia Code(s): E87.0 - Hyperosmolality and hypernatremia Status: Acute (5) Hypokalemia Code(s): E87.6 - Hypokalemia Status: Acute (6) Sinus arrhythmia Code(s): I49.8 - Other specified cardiac arrhythmias Status: Acute - Plan Ms. Long is an 82-year-old female with a history of osteoporosis, anxiety who presents to the emergency department on 01/06/2018 due to abdominal pain. She gives inconsistent timeframe of her symptoms. However she reports no bowel movement for 7-10 days. She denies any chest pain, shortness of breath , fever or chills. CT abdomen pelvis showed possible ileus or enteritis. No mechanical obstruction noted. Sepsis (WBC 10.1 K, heart rate above 100, suspected infection intra-abdominal, lactic acid 5.0, 5.6) Acute abdominal pain -continue Zosyn 3.375 g every 6 hours Lactic acid trending down, 2.5 today Morphine for pain management. Continue IV fluid. Bowel regimen in place. today pain not as severe, has not had BM. Constipation -continue stool softeners -Lactulose now, had Dulcolax supp earlier -may need mag citrate if above doesn't help. Tachycardia, HR up to 130s at times. Irregular PACS ? afib. On Atenolol. Hx of palpitations has seen Dr. Khan before. On Atenolol -EKG reviewed, ST with 1st AVB, occ. PVCs -repeat EKG -Resume Atenolol JASON, secondary to sepsis Initial creat 1.09>>1.24 -Hold Furosemide and Quinapril -Avoid nephrotoxic agents. -continue IVF -Monitor I/O Hx of TIA -continue Plavix Hyperglycemia Blood glucose 225 on admission. Will keep patient on sliding scale insulin. -blood glucose improving 139, 133. Likely elevation due to stress response -HgbA1C in am Anxiety -continue diazepam 10 mg p.o. twice daily Dementia-- initially suspected as pt. was disoriented likely due to sepsis. Today pt. 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 Pt. now DNR. She is amenable to SNF if needed and LTC if not able to go back to [facility]. Heparin for DVT prophylaxis PPI for GI prophylaxis. Consult PT/OT, OOB daily Labs in am DNR status now Code Status: Goals of care and code status discussed with pt. at length, states that she would not want life sustaining measures to include CPR, ACLS, intubation. Changed to DNR status. Palliative care also consulted. Discussed Condition With: RN, pt, CM, Domo MARTINEZ Palliative care Discharge Planning: [facility] with HHC/PT vs SNF (1) Abdominal pain Qualifiers: Abdominal location: generalized Qualified Code(s): R10.84 - Generalized abdominal pain (3) Sepsis Qualifiers: Sepsis type: sepsis due to unspecified organism Qualified Code(s): A41.9 - Sepsis, unspecified organism
[2018-01-07] MEDS ORDERED: Potassium Chloride 25 MEQ Effervescent Tablet PO ONE (11:20)
[2018-01-07] MEDS: Atenolol 100 MG Tablet PO SCH (12:19)
[2018-01-07] MEDS: Sod Chloride 0.9% Inj 1,000 ML IV.CONT SCH ×2 (12:29→20:58)
--- NOTE | 2018-01-07 14:48 | ECG ---
Date Performed: 01/07/2018 Time Performed: 13:48:14 PTAGE: 82 years EKG: SINUS TACHYCARDIA WITH FREQUENT VENTRICULAR PREMATURE COMPLEXES WITH OCCASIONAL SUPRAVENTRI CULAR PREMATURE COMPLEXES NONSPECIFIC T-WAVE ABNORMALITY ABNORMAL RHYTHM ECG No significant change fr om prior electrocardiogram. PREVIOUS TRACING : 01/06/2018 06.14 DOCTOR: Irving Khan Interpretating Date/Time 01/07/2018 14:48:16
[2018-01-07] MEDS: Heparin - SQ 10,000 UNITS/ML Vial SQ SCH (20:58)
[2018-01-08] MEDS: Piperacil/Tazo 3.375 GM Premix 50 ML IV.SIG SCH ×3 (02:50→13:57)
[2018-01-08] MEDS: Sod Chloride 0.9% Inj 1,000 ML IV.CONT SCH (05:00)
[2018-01-08 06:25] LABS: Hematocrit 35.9 % (35.0-46.0); Mean Corpuscular HGB Conc 33.6 % (32.0-36.0); Mean Corpuscular Volume 92.2 fL (80.0-100.0); Mean Platelet Volume 8.6 fL (7.0-11.0); Platelet Count 147 th/mm3 (150-450); Red Blood Count 3.89 mil/mm3 (4.00-5.30); Red Cell Distribution Width 13.4 % (11.6-17.2); White Blood Count 14.4 th/mm3 (4.0-11.0)
[2018-01-08 07:18] LABS: Calcium 9.3 mg/dL (8.5-10.1); Carbon Dioxide 29.1 meq/L (21.0-32.0); Potassium 3.2 meq/L (3.5-5.1)
[2018-01-08] MEDS ORDERED: Sodium Chloride 0.45 % Inj 1,000 ML IV.CONT SCH (07:45)
[2018-01-08] MEDS: Heparin - SQ 10,000 UNITS/ML Vial SQ SCH (08:04)
[2018-01-08] MEDS: Atenolol 100 MG Tablet PO SCH (08:04)
[2018-01-08] MEDS: Pantoprazole Sodium 20 MG DR Tablet PO SCH (08:04)
[2018-01-08] MEDS ORDERED: Magnesium Oxide 400 MG Tablet PO ONE (08:09)
[2018-01-08] MEDS ORDERED: Potassium Chloride 25 MEQ Effervescent Tablet PO ONE ×2 (08:09)
[2018-01-08] MEDS: Insulin NovoLOG Aspart Correctional Sugar Inj SQ SCH ×2 (08:20→12:31)
--- NOTE | 2018-01-08 10:45 | P.PNIM ---
Subjective Interval history: Follow-up visit sepsis suspected intra-abdominal infection, abdominal pain, nausea. Patient seen and examined today. Reports she is doing a lot better but still has mucus coming up after she eats. Further explanation patient states that she takes Mucinex because she keeps on producing mucus after eating. Reports no vomiting, no nausea. Tolerating p.o. liquids. Denies fevers, chills. Denies chest pain, palpitations. Patient was witnessed ambulating the hallway with physical therapist. Physical Exam Vital signs: Vital Signs 01/07/18 11:41 01/07/18 12:00 01/07/18 16:00 Temperature 98.9 F 98.2 F Pulse Rate 100 H 130 H 73 Respiratory Rate 20 20 Blood Pressure 168/95 H 137/63 Pulse Oximetry 93 L 97 01/07/18 17:30 01/07/18 20:00 01/08/18 00:00 Temperature 97.8 F 98.9 F Pulse Rate 95 H 88 Respiratory Rate 20 20 Blood Pressure 116/71 154/67 H Pulse Oximetry 97 95 94 L 01/08/18 04:00 01/08/18 07:15 01/08/18 08:00 Temperature 98 F 98.3 F Pulse Rate 85 86 Respiratory Rate 20 20 Blood Pressure 132/81 152/95 H Pulse Oximetry 93 L 93 L 93 L Intake & Output 01/07/18 01/08/18 01/08/18 18:59 06:59 18:59 Intake Total 1100 / 1100 1100 / 1100 Balance 1100 / 1100 1100 / 1100 Weight 82.2 kg Intake: IV 1100 / 1100 1100 / 1100 NS Inj 1,000 ML @ 100 mls/hr IV 1000 / 1000 1000 / 1000 .CONT .Q10H SAQIB Rx#:[id number] Zosyn 3.375 GM Premix 50 ML @ 100 / 100 100 / 100 100 mls/hr IV.SIG Q6H SAQIB Rx#: [id number] Other: # Voids 1 # Incontinent Voids 3 # Bowel Movements 1 Narrative: GENERAL: This is a well-nourished, well-developed patient, in no apparent distress. SKIN: Warm and dry HEENT: Normocephalic. Pupils equal round and reactive. Nose without bleeding. Airway patent. NECK: Trachea midline. CARDIOVASCULAR: Regular rate and rhythm without murmurs, gallops, or rubs. RESPIRATORY: Clear to auscultation. Breath sounds equal bilaterally. No wheezes , rales, or rhonchi. GASTROINTESTINAL: Abdomen soft, nondistended. Bowel Sounds normoactive x4. Left lower quadrant tenderness to palpate. MUSCULOSKELETAL: Extremities without clubbing, cyanosis, or edema. NEUROLOGICAL: Awake and alert. No focal neuro deficit. Moves all extremities. Normal speech. - Urinary Catheter Management Straight Cath placed during this visit: yes, but has since been removed by the nurse Reason for continuing: Not indwelling catheter Insertion date: 01/06/18 Insertion time: 08: Removal date: 01/06/18 Removal time: 08: Results - Labs CBC & Chem 7: 01/08/18 06:04 01/08/18 06:04 Laboratory Results - last 24 hr 01/07/18 01/07/18 01/07/18 12:15 17:19 19:20 WBC RBC Hgb Hct MCV MCH MCHC RDW Plt Count MPV Sodium Potassium Chloride Carbon Dioxide Anion Gap BUN Creatinine Estimated GFR POC Glucose 133 H 139 H Random Glucose Lactic Acid 2.9 H Calcium 01/07/18 01/08/18 01/08/18 22:38 06:04 06:04 WBC 14.4 H RBC 3.89 L Hgb 12.0 Hct 35.9 MCV 92.2 MCH 31.0 MCHC 33.6 RDW 13.4 Plt Count 147 L MPV 8.6 Sodium 144 Potassium 3.2 L Chloride 111 H Carbon Dioxide 29.1 Anion Gap 4 L BUN 20 H Creatinine 0.89 Estimated GFR 61 L POC Glucose 133 H Random Glucose 125 H Lactic Acid Calcium 9.3 D 01/08/18 01/08/18 06:04 08:16 WBC RBC Hgb Hct MCV MCH MCHC RDW Plt Count MPV Sodium Potassium Chloride Carbon Dioxide Anion Gap BUN Creatinine Estimated GFR POC Glucose 120 H Random Glucose Lactic Acid 1.3 Calcium Microbiology 01/06/18 08:03 Blood - Peripheral Aerobic Blood Culture - Preliminary No growth in 1 day 01/06/18 08:03 Blood - Peripheral Anaerobic Blood Culture - Preliminary No growth in 1 day 01/06/18 08:03 Blood - Peripheral Aerobic Blood Culture - Preliminary No growth in 1 day 01/06/18 08:03 Blood - Peripheral Anaerobic Blood Culture - Preliminary No growth in 1 day Assessment and Plan - Assessment (1) Abdominal pain Code(s): R10.9 - Unspecified abdominal pain Status: Acute (2) Acidosis, lactic Code(s): E87.2 - Acidosis Status: Acute (3) Sepsis Code(s): A41.9 - Sepsis, unspecified organism Status: Acute (4) Hypernatremia Code(s): E87.0 - Hyperosmolality and hypernatremia Status: Acute (5) Hypokalemia Code(s): E87.6 - Hypokalemia Status: Acute (6) Sinus arrhythmia Code(s): I49.8 - Other specified cardiac arrhythmias Status: Acute - Plan Ms. Long is an 82-year-old female with a history of osteoporosis, anxiety who presents to the emergency department on 01/06/2018 due to abdominal pain. She gives inconsistent timeframe of her symptoms. However she reports no bowel movement for 7-10 days. She denies any chest pain, shortness of breath , fever or chills. CT abdomen pelvis showed possible ileus or enteritis. No mechanical obstruction noted. Sepsis (WBC 10.1 K, heart rate above 100, suspected infection intra-abdominal, lactic acid 5.0, 5.6) Acute abdominal pain CT abdomen pelvis showed possible ileus or enteritis -continue Zosyn 3.375 g every 6 hours Lactic acid wnl today 1.3 Morphine for pain management. Continue IV fluid, change to 1/2 NS Bowel regimen in place. Reports BM -We will advance diet. If tolerating, may DC [facility] in am, will switch to Flagyl PO x5 days Hypokalemia -Potassium replacements. Repeat BMP Constipation -continue bowel regimen. -Patient states she takes 4 bisacodyl's every day to give her bowel movements. Tachycardia, HR up to 130s Irregular PACS ? afib. On Atenolol Hx of palpitations has seen Dr. Khan before. On Atenolol -EKG reviewed, ST with 1st AVB, occ. PVCs -repeat EKG ST -Resume Atenolol -SR on exam JASON, secondary to sepsis Initial creat 1.09-->1.24 -->0.89 -Hold Furosemide and Quinapril -Avoid nephrotoxic agents. -IVF -Improved Hx of TIA -continue Plavix Hyperglycemia Blood glucose 225 on admission. Will keep patient on sliding scale insulin. -blood glucose improving 139, 133. Likely elevation due to stress response -HgbA1C pending Anxiety -continue diazepam 10 mg p.o. twice daily Heparin for DVT prophylaxis PPI for GI prophylaxis. CODE STATUS: DNR Discussed with patient, nursing Discharge Planning: Plan to discharge tomorrow to [facility] if clinically improved. (1) Abdominal pain Qualifiers: Abdominal location: generalized Qualified Code(s): R10.84 - Generalized abdominal pain (3) Sepsis Qualifiers: Sepsis type: sepsis due to unspecified organism Qualified Code(s): A41.9 - Sepsis, unspecified organism
[2018-01-08 15:38] LABS: Hemoglobin A1c 5.7 % (4.3-6.0)
== END 2018-01-08 15:37 | disposition left against medical advice (07) ==
LOC: NEPE 06:02 → NEDA 09:25 → N05 13:15
PROVIDERS: ADMIT Family Medicine; ATTEND Family Medicine